=== PATIENT | male | born 1935 | race Hispanic/Latino ===

== ENCOUNTER 2016-12-25 08:45 | Inpatient (IN) | payer MEDICARE, OTHER ==
--- NOTE | 2016-12-25 09:22 | ED PDOC ---
Arrival/HPI - General Chief Complaint: Shortness Of Breath Time Seen by Provider: 12/25/16 08:46 Historian: Patient, Spouse - History of Present Illness Narrative History of Present Illness (Text): 12/25/16 08:57 Abhilash Lambert is an 81 year old male, former smoker whose past medical history includes Hypertension and Sleep Apnea, who presents to the emergency department after being on a [address] [facility] for evaluation of an infiltrate at the right lung. Patient about 3 days ago began to feel weak and experience cough, difficulty breathing/shortness of breath, and fevers. It was reported that patient had two episodes of diarrhea and vomiting, a 101 temperature, and one fall event. Patient had a reported white count of 11.7. Patient states he felt "flushed" and generally weak prior to the fall, but he is unsure what caused the fall. Patient denies LOC or head trauma. Patient received treatment on the cruise which includes Albuterol, Dexamethasone, Rocephin, Levaquin, and Azithromycin. PA Lateral Chest X-Ray taken on cruise showed infiltrate at the right lung. Patient otherwise denies any chest pain, urinary symptoms, back pain , neck pain, headache, dizziness, or any other complaints. PMD: In [place] Time/Duration: < week (3 days) Symptom Onset: Gradual Symptom Course: Unchanged Activities at Onset: Light Context: Other (Cruise) Past Medical History - Provider Review Nursing Documentation Reviewed: Yes - Travel History If Yes, travel location?: [facility] - Infectious Disease Hx of Infectious Diseases: None - Cardiac Hx Hypertension: Yes - Pulmonary Other/Comment: c-pap prn - Psychiatric Hx Substance Use: No - Anesthesia Hx Anesthesia: No Family/Social History - Physician Review Nursing Documentation Reviewed: Yes Family/Social History: No Known Family HX Smoking Status: Unknown If Ever Smoked Hx Alcohol Use: Yes Frequency of alcohol use: Socially Hx Substance Use: No Allergies/Home Meds Allergies/Adverse Reactions: Allergies No Known Allergies Allergy (Verified 12/25/16 08:53) Review of Systems - Physician Review All systems were reviewed & negative as marked: Yes - Review of Systems Constitutional: Fevers, Other (Generalized weakness) Eyes: Normal ENT: Normal Respiratory: SOB, Cough Cardiovascular: Normal Gastrointestinal: Diarrhea, Nausea, Vomiting. absent: Abdominal Pain Genitourinary Male: Normal. absent: Dysuria, Frequency, Hematuria, Urinary Output Changes Musculoskeletal: Normal. absent: Back Pain, Neck Pain Skin: Normal Neurological: Normal. absent: Headache Endocrine: Normal Hemo/Lymphatic: Normal Psychiatric: Normal Physical Exam Vital Signs Reviewed: Yes Vital Signs Temp Pulse Resp BP Pulse Ox 12/25/16 10:02 97.8 F 12/25/16 09:08 18 12/25/16 08:45 97.8 F 70 18 140/107 H 95 Blood Pressure: Hypertensive Pulse: Regular Respiratory Rate: Normal Appearance: Positive for: Well-Appearing, Non-Toxic, Comfortable Pain Distress: None Mental Status: Positive for: Alert and Oriented X 3 - Systems Exam Head: Present: Atraumatic, Normocephalic Pupils: Present: PERRL Extroacular Muscles: Present: EOMI Conjunctiva: Present: Normal Mouth: Present: Moist Mucous Membranes Neck: Present: Normal Range of Motion Respiratory/Chest: Present: Good Air Exchange, Rhonchi (Rhonchi on Right, Lower Side), Tachypneic (Mild). No: Respiratory Distress, Accessory Muscle Use, Decreased Breath Sounds Cardiovascular: Present: Regular Rate and Rhythm, Normal S1, S2. No: Murmurs Abdomen: Present: Normal Bowel Sounds. No: Tenderness, Distention, Peritoneal Signs Back: Present: Normal Inspection Upper Extremity: Present: Normal Inspection. No: Cyanosis, Edema Lower Extremity: Present: Normal Inspection. No: Edema Neurological: Present: GCS=15, CN II-XII Intact, Speech Normal Skin: Present: Warm, Dry, Normal Color. No: Rashes Psychiatric: Present: Alert, Oriented x 3, Normal Insight, Normal Concentration Medical Decision Making ED Course and Treatment: 12/25/16 08:57 Impression: 81 year old male presenting from cruise with R infiltrate, cough, fever, difficulty breathing, vomiting, diarrhea and one fall event. Differential Diagnosis include but are not limited to: PNA Plan: -- Chest X-ray -- VBG -- Blood Culture -- Labs -- Reassess and disposition Progress Notes: 12/25/16 09:18 EKG: Ordered, reviewed, and independently interpreted the EKG. Rate : 67 BPM Rhythm : NSR Interpretation : RBBB, PACs Comparison : No previous EKG for comparison. 12/25/16 09:37 Chest x-ray read by me shows right upper lobe PNA. 12/25/16 10:[address] López, who is covering for Dr. Martins, and will admit patient to the medical floor. Also discussed antibiotic dose the patient was, at 11pm patient was given Rocephin & Levaquin. As per request of Dr. López will only treat with Levaquin. 12/25/16 10:26 Dr. Martins came to see patient and agrees with plan. Patient is admitted to medicine for Pneumonia. - Lab Interpretations Lab Results: 12/25/16 09:27 12/25/16 09:27 Lab Results 12/25/16 09:27: Sodium 130 L, Chloride 98, Potassium 3.8, Carbon Dioxide 27, Anion Gap 9 L, BUN 24 H, Creatinine 1.0, Est GFR ( Amer) > 60, Est GFR ( Non-Af Amer) > 60, Random Glucose 218 H, Calcium 8.8, Phosphorus 2.4 L, Magnesium 2.2 12/25/16 09:27: pO2 93 H, VBG pH 7.43, VBG pCO2 41.0, VBG HCO3 27.2, VBG Total CO2 28.5 H, VBG O2 Sat (Calc) 99.2 H, VBG Base Excess 2.6 H, VBG Potassium 3.6, Sodium 131.0 L, Chloride 102.0, Glucose 221 H, Lactate 1.8, FiO2 21.0, Venous Blood Potassium 3.6 12/25/16 09:27: WBC 10.8, RBC 4.12, Hgb 13.1 L, Hct 35.7 L, MCV 86.7, MCH 31.8, MCHC 36.7, RDW 14.1, Plt Count 82 L, MPV 9.8, Gran % 89.2 H, Lymph % (Auto) 3.7 L, [place] % (Auto) 7.1 H, Eos % (Auto) 0.0 L, Baso % (Auto) 0.0, Gran # 9.62 H, Lymph # 0.4 L, [place] # 0.8 H, Eos # 0.0, Baso # 0.00 I have reviewed the lab results: Yes Interpretation: Abnormal lab values - RAD Interpretation Radiology Orders: 12/25/16 09:13 CXR [CHEST PORTABLE] [RAD] Stat Podiatrist Assistant: ED Physician - EKG Interpretation Interpreted by ED Physician: Yes Type: 12 lead EKG Comparison: No previous EKG avail. - Medication Orders Current Medication Orders: Discontinued Medications Levofloxacin/Dextrose (Levaquin 750mg) 750 mg IVPB STAT STA Stop: 12/25/16 10:05 - Scribe Statement The provider has reviewed the documentation as recorded by the Shannanibheike Arguelles Provider Attestation: All medical record entries made by the Shannanibheike were at my direction and personally dictated by me. I have reviewed the chart and agree that the record accurately reflects my personal performance of the history, physical exam, medical decision making, and the department course for this patient. I have also personally directed, reviewed, and agree with the discharge instructions and disposition. Disposition/Present on Arrival - Present on Arrival Any Indicators Present on Arrival: No History of DVT/PE: No History of Uncontrolled Diabetes: No Urinary Catheter: No History of Decub. Ulcer: No History Surgical Site Infection Following: None - Disposition Have Diagnosis and Disposition been Completed?: Yes Diagnosis: Pneumonia Disposition: HOSPITALIZED Disposition Time: 10:05 Patient Plan: Admission Condition: FAIR
[2016-12-25 09:29] LABS: ADD MANUAL DIFF? NO
[2016-12-25 09:34] LABS: VENOUS BLOOD GAS BASE EXCESS 2.6 mmol/L (0.0-2.0); VENOUS BLOOD PH 7.43 (7.32-7.43)
[2016-12-25 09:41] LABS: BLOOD UREA NITROGEN 24 mg/dL (7-21); CALCIUM 8.8 mg/dL (8.4-10.5); CARBON DIOXIDE 27 mmol/L (21-33); CHLORIDE 98 mmol/L (98-107); GFR AFRICAN-AMERICAN > 60; GLUCOSE,RANDOM 218 mg/dL (70-110); MAGNESIUM 2.2 mg/dL (1.7-2.2); PHOSPHOROUS 2.4 mg/dL (2.5-4.5); POTASSIUM 3.8 mmol/L (3.6-5.0); SODIUM 130 mmol/L (132-148)
--- NOTE | 2016-12-25 09:41 | RAD ---
HISTORY: cough r/o pna COMPARISON: No prior. FINDINGS: LUNGS: There is dense consolidation in the right upper lobe consistent with pneumonia. PLEURA: No significant pleural effusion identified, no pneumothorax apparent. CARDIOVASCULAR: Normal. OSSEOUS STRUCTURES: No significant abnormalities. VISUALIZED UPPER ABDOMEN: Normal. OTHER FINDINGS: None. IMPRESSION: Right upper lobe pneumonia
[2016-12-25 09:42] LABS: GRAN # 9.62 (1.4-6.5); GRAN % 89.2 % (50.0-68.0); HEMATOCRIT 35.7 % (42.0-52.0); LYMPH # 0.4 (1.2-3.4); LYMPH % 3.7 % (22.0-35.0); MEAN CELL VOLUME 86.7 fL (80.0-105.0); MEAN CORPUSCULAR HEMOGLOBIN 31.8 pg (25.0-35.0); MEAN CORPUSCULAR HGB CONC 36.7 g/dl (31.0-37.0); MEAN PLATELET VOLUME 9.8 fl (7.0-11.0); MONO # 0.8 (0.1-0.6); MONO % 7.1 % (1.0-6.0); PLATELET COUNT 82 10^3/uL (120.0-450.0); RED CELL DISTRIBUTION WIDTH 14.1 % (11.5-14.5); WHITE BLOOD COUNT 10.8 10^3/ul (4.5-11.0)
[2016-12-25 09:46] VITALS: BMI 26.9
[2016-12-25] MEDS ORDERED: levoFLOXacin 750 mg in D5W 150 ML BAG IVPB STA (10:04)
[2016-12-25] MEDS ORDERED: Azithromycin 500MG/NS 250ml 500 MG/250 ML BAG IVPB STA (10:47)
[2016-12-25] MEDS ORDERED: Levalbuterol 1.25 MG/3 ML Inhal Soln UD IH PRN (10:56)
[2016-12-25] MEDS ORDERED: Sodium Chloride 0.9% 1,000 ML IV SCH (11:00)
--- NOTE | 2016-12-25 14:02 | CT ---
PROCEDURE: CT Chest without contrast HISTORY: infiltrate COMPARISON: None. TECHNIQUE: Contiguous axial images were obtained through the chest without intravenous contrast enhancement. Sagittal and coronal reconstructions were performed. Radiation dose (DLP): 802 mGy-cm. This CT exam was performed using one or more of the following dose reduction techniques: Automated exposure control, adjustment of the mA and/or kV according to patient size, and/or use of iterative reconstruction technique. FINDINGS: LUNGS: There is dense consolidation in the right upper lobe consistent with pneumonia. There multiple air bronchograms. MEDIASTINUM: Unremarkable thoracic aorta. No aneurysm. Normal sized heart. Main pulmonary artery unremarkable. No vascular congestion. No lymphadenopathy. PLEURA: No pleural fluid. No pneumothorax. BONES: No fracture. No destructive lesion. UPPER ABDOMEN: Grossly unremarkable. OTHER FINDINGS: None. IMPRESSION: Dense consolidation in the right upper lobe with air bronchograms. The findings are consistent with pneumonia
[2016-12-25 14:09] LABS: TROPONIN I 0.02 ng/mL
[2016-12-25] MEDS: Piperacillin/Tazobact 3.375 gm 100 ML IVPB SCH (14:32)
--- NOTE | 2016-12-25 16:28 | HP ---
I saw the patient in the Emergency Room this morning. He was on a cruise ship. He was treated on a cruise ship with 2 days of IV antibiotics. He was on Levaquin, Rocephin and Zithromax. He is here in the ER with 101 temperature and a chest x-ray showing persistent right upper lobe pneumonia. He had a white count of 11.7 in the cruise ship. He is feeling weak, not feeling that great. He was given steroids, and he is still not feeling well, so he is here in the Emergency Room with positive right upper lobe pneumonia, a little bit weak. PAST MEDICAL HISTORY: He has a past medical history of hypertension. He would use CPAP at home p.r.n. FAMILY HISTORY: Hypertension in the family. SOCIAL HISTORY: He does drink alcohol socially. He smoked in the past, no substance abuse. ALLERGIES: No known drug allergies. REVIEW OF SYSTEMS: He has been having fevers. He is short of breath. He is coughing up sputum, no chest pain or palpitations. He does have diarrhea, nausea, vomiting, but no abdominal pain, no problems urinating. No back pain. Skin is intact. No dizziness, blurred vision. He is weak. PHYSICAL EXAMINATION: VITAL SIGNS: So far here in the hospital, he has a 97.8 temp, 70 pulse, 18 respiratory rate, 140/107 blood pressure. I will put him back on his blood pressure meds. HEENT: His head is atraumatic, normocephalic. Extraocular muscles are intact. Pupils equal, reactive to light and accommodation. Throat is moist. NECK: Supple. LUNGS: Decreased breath sounds, more congestion on the right upper lobe. HEART: Regular rate. Normal S1, S2. ABDOMEN: Soft, nontender, positive bowel sounds, no guarding, no rebound, no CVA tenderness. EXTREMITIES: No edema. NEUROLOGIC: GCS is 15. Cranial nerves II-XII grossly intact. Normal speech. SKIN: Warm and dry, no rashes. NEUROLOGIC: He is alert and oriented x 3. Thyroid midline. No palpable lymphadenopathy appreciated. He is an 81-year-old with a right upper lobe pneumonia, cough, fever, difficulty breathing. He has been on 3 antibiotics and still persistent with the pneumonia. Also, his blood pressure is high. I will get infectious disease to see if we need to change antibiotics pulmonary. Put him on oxygen. Blood pressure meds. I will check his labs tomorrow. He has also had low sodium. I have put him on 0.9, IV fluids and we will watch him very closely. The patient was on a cruise ship and now has persistent pneumonia. Gabe Martins DO cc: [id number] TT: 12/25/2016 16:28:14 mn MTDD
[2016-12-25] MEDS: Sodium Chloride 0.9% 1,000 ML IV SCH (17:04)
[2016-12-25 18:04] LABS: ARTERIAL BLOOD GAS HCO3 22.6 mmol/L (21-28)
--- NOTE | 2016-12-25 18:37 | CP.PCM.PN ---
Subjective - Date & Time of Evaluation Date of Evaluation: 12/25/16 Time of Evaluation: 17:30 - Subjective Subjective: Patient seen stat at the request of his R N who stated pt needs to be seen for his c/o feeling weak. He sat up at the edge of the bed and was about to start having his meal when he slumped back in the bed because he felt he "lost his balance" and couldn't sit. He denies any complaint of weakness in the arms or legs, nausea, vomiting, chest pain but admitted to having difficulty breathing. Denies chest pain on taking a deep breath. He was admitted this morning with a diagnosis of right sided pneumonia, is on antibiotics.He fell ill while on a cruise ship on December 23 while on a cruise ship,was treated for pneumonia. VS- BP 165/85 T 100.9 HR 92 RR 22 O2 Sat 97% on room air Patient was placed on oxygen O2 2L per minute. PMH: HTN, sleep apnea, ex-smoker (gave up smoking in 1974) Objective - Vital Signs/Intake and Output Vital Signs (last 24 hours): Temp Pulse Resp BP Pulse Ox 101.1 F H 88 20 159/86 H 95 12/25/16 17:07 12/25/16 16:00 12/25/16 16:00 12/25/16 16:00 12/25/16 16:00 Intake and Output: 12/25/16 12/25/16 06:59 18:59 Intake Total 240 Balance 240 - Medications Medications: Current Medications Acetaminophen (Tylenol 325mg Tab) 650 mg PO Q6H PRN PRN Reason: Temperature Last Admin: 12/25/16 17:07 Dose: 650 mg Aspirin (Ecotrin) 81 mg PO DAILY [facility] Atorvastatin Calcium (Lipitor) 20 mg PO DIN [facility] Last Admin: 12/25/16 17:07 Dose: 20 mg Hydrochlorothiazide (Microzide) 12.5 mg PO DAILY [facility] Levofloxacin/Dextrose (Levaquin 500mg) 500 mg in 100 mls @ 100 mls/hr IVPB DAILY [facility] Stop: 01/05/17 10:01 Piperacillin Sod/Tazobactam Sod (Zosyn 3.375 In Ns 100ml) 100 mls @ 200 mls/hr IVPB Q6 [facility] PRN Reason: Protocol Stop: 01/08/17 13:04 Last Admin: 12/25/16 14:32 Dose: 200 mls/hr Sodium Chloride (Sodium Chloride 0.9%) 1,000 mls @ 100 mls/hr IV .Q10H [facility] Last Admin: 12/25/16 17:04 Dose: 100 mls/hr Levalbuterol HCl (Xopenex) 1.25 mg IH [id number] PRN PRN Reason: Shortness of Breath Last Admin: 12/25/16 17:20 Dose: 1.25 mg Lisinopril (Zestril) 20 mg PO DAILY [facility] Metoprolol Succinate (Toprol Xl) 25 mg PO BRK [facility]ICA - Constitutional Appears: Non-toxic, Other (mildly tachypneic) - Head Exam Head Exam: ATRAUMATIC, NORMAL INSPECTION, NORMOCEPHALIC - ENT Exam ENT Exam: Mucous Membranes Moist - Neck Exam Neck Exam: Normal Inspection - Respiratory Exam Respiratory Exam: Rales (noted in right upper lung field), Rhonchi, Wheezes - Cardiovascular Exam Cardiovascular Exam: Irregular Rhythm (sinus arrhythmia with PACs noted on the EKG) - GI/Abdominal Exam GI & Abdominal Exam: Soft, Normal Bowel Sounds. absent: Tenderness - Extremities Exam Extremities Exam: Normal Inspection. absent: Calf Tenderness, Pedal Edema - Neurological Exam Neurological Exam: Alert, Awake, Oriented x3 Additional comments: no gross focal deficit - Psychiatric Exam Psychiatric exam: Normal Affect - Skin Skin Exam: Dry, Normal Color, Warm Assessment and Plan - Assessment and Plan (Free Text) Assessment: Pneumonia Plan: ABG shock panel Increase O2 to 3 liters per minute EKG that was ordered earlier, done now ABG shows PO2 of 89 on 2L O2 EKG shows sinus arrhythmia with RBBB (unchanged from before) Patient assured Call placed to Dr. López and Dr. Navarro (patient states he uses CPAP at home, need to discuss with Dr. Navarro)
[2016-12-25 19:24] LABS: URINE BILIRUBIN NEGATIVE (NEGATIVE); URINE BLOOD LARGE (NEGATIVE); URINE GLUCOSE (UA) NEGATIVE (NEGATIVE); URINE KETONE NEGATIVE (NEGATIVE); URINE LEUKOCYTE ESTERASE NEGATIVE Leu/uL (NEGATIVE); URINE PROTEIN 100 mg/dL (<30 mg/dL)
[2016-12-25 19:55] LABS: URINE COLOR YELLOW (YELLOW)
[2016-12-25 19:57] LABS: URINE APPEARANCE SL CLOUDY (CLEAR)
[2016-12-25 19:59] LABS: URINE BACTERIA MOD (NEG)
--- NOTE | 2016-12-25 20:41 | CON ---
DATE: 12/25/2016 The patient seen in room 562, bed 2. CHIEF COMPLAINT: Nausea, vomiting, diarrhea x 1 day. HISTORY OF PRESENT ILLNESS: This is an 81-year-old [place] with a history of hypertension an d has sleep apnea. He sleeps with CPAP at home because of his sleep apnea and he is from [place]. 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 Tw to 3 days into the cruise, he began doc umented fevers, nausea, vomiting and he was given antibiotics on the cruise. He had somewhat improve ment by the cruise and this morning the patient got off the ship in [place] and he came to the [facility] and infectious consultation requested for antibiotic choice. The patient was given ceftriax one and Levaquin and Zithromax on the cruise line and he was having fevers and occasional chills. He has had no chest pain. He denies any cough and no abdominal pain. He has mild shortness of breath and no dysuria or frequency, no bright red blood per rectum, his diarrhea has resolved and no headach es, no blurred vision and no new back pain. PAST MEDICAL HISTORY: Is significant for hypertension, sleep apnea on CPAP at home. PAST SURGICAL HISTORY: Is significant for left knee surgery and left hip surgery. ALLERGIES: The patient has no known allergies. MEDICATIONS AT HOME: Include Zocor for his hyperlipidemia, lisinopril and metoprolol, which is Topro l, in addition to aspirin. He has no exposure to any animals. He was in [place] years ago and was in [place] years ago. Recent ly was in [place]. He served as a vet in [place] and no exposure to tuberculosis that he recalls and kirsti burroughs has no known allergies. PHYSICAL EXAMINATION: GENERAL: He is in bed. He is from [place]. His present at the bedside, gave a detailed histo ry. VITAL SIGNS: Temperature of 99.4, blood pressure is 120/60, respiratory rate of 20, heart rate of 70 . HEENT: Unremarkable. NECK: Supple. LUNGS: Have decreased breath sounds. HEART: Normal S1, S2. ABDOMEN: Soft, nontender. No rebound, no guarding. NEUROLOGIC: The patient is awake and alert x 3. Motor function is 5/5. LABORATORY EXAMINATION: Reveals a white count of 10,000, hemoglobin of 13, platelets of 82 and 89% g ranulocytosis. Blood gases are noted with a pH of 7.4, pCO2 is 41, pO2 of 99%, and FIO2 of 21%. Ilia mistries reveal sodium is 130, potassium is 3.8, BUN of 24, creatinine of 1.0. Random glucose is 218 with a low phosphorus of 2.4. X-ray reveals dense consolidation in the right upper lobe consistent with a pneumonia. The Emergency Room chart is also reviewed. ASSESSMENT AND PLAN: This is an 81-year-old male who is a [place] , hypertension, sleep apnea on CPAP with left knee surgery, left hip surgery who presented with nausea, vomiting, diarrhea and w as given antibiotics on the ship on the way to [facility], now presenting with right upper lobe communit y-acquired pneumonia, failed as an outpatient. Must consider legionella although the patient's fever is a low grade fever. At this point, he states he had temperatures on the boat. Will treat the pat ient with Zosyn and Levaquin. I asked for a urine for legionella antigen pending pressley cultures, and a hemoglobin A1c. Will do a cardiac workup including EKG and cardiac isoenzymes and troponins and ilia ck on the LFTs and a urinalysis and urine culture and sputum culture and blood cultures and a CAT sca n of the chest and we will make further recommendations upon availability of initial results. John Doherty MD cc: [id number] TT: 12/25/2016 20:40:21 Confirmation # [id number] Dictation # [id number] dn
[2016-12-25 22:26] LABS: TROPONIN I 0.03 ng/mL
[2016-12-26] MEDS: Piperacillin/Tazobact 3.375 gm 100 ML IVPB SCH ×3 (00:11→14:04)
[2016-12-26] MEDS ORDERED: Albuterol-Ipratrop 3 mg / 0.5 (3 ml) UD IH PRN (06:38)
[2016-12-26 07:06] LABS: HEMATOCRIT 37.9 % (42.0-52.0); MEAN CELL VOLUME 88.3 fL (80.0-105.0); MEAN CORPUSCULAR HEMOGLOBIN 31.2 pg (25.0-35.0); MEAN CORPUSCULAR HGB CONC 35.4 g/dl (31.0-37.0); MEAN PLATELET VOLUME 9.9 fl (7.0-11.0); RED CELL DISTRIBUTION WIDTH 14.3 % (11.5-14.5); WHITE BLOOD COUNT 8.7 10^3/ul (4.5-11.0)
[2016-12-26 07:32] LABS: ALKALINE PHOSPHATASE 154 U/L (38-133); ALT/SGPT 263 U/L (7-56); AST/SGOT 403 U/L (15-59); BILIRUBIN,TOTAL 2.1 mg/dL (0.2-1.3); BLOOD UREA NITROGEN 24 mg/dL (7-21); CALCIUM 8.4 mg/dL (8.4-10.5); CARBON DIOXIDE 32 mmol/L (21-33); CHLORIDE 98 mmol/L (98-107); GFR AFRICAN-AMERICAN > 60; GLUCOSE,RANDOM 128 mg/dL (70-110); POTASSIUM 4.1 mmol/L (3.6-5.0); SODIUM 133 mmol/L (132-148); TOTAL PROTEIN 6.4 g/dL (5.8-8.3)
[2016-12-26] MEDS: Budesonide 0.5 mg/2 ml Inhal Susp UD IH SCH ×2 (07:52→19:10)
[2016-12-26] MEDS: Albuterol-Ipratrop 3 mg / 0.5 (3 ml) UD IH SCH ×3 (07:52→19:10)
[2016-12-26] MEDS: Metoprolol Succinate 25 mg XL Tab PO SCH (08:30)
--- NOTE | 2016-12-26 09:16 | CON ---
DATE: 12/26/2016 REASON FOR CONSULTATION: Pneumonia. REFERRING PHYSICIAN: Dr. Gabe Martins History is obtained via extensive discussion with the patient and . I have also reviewed the chart at length. The patient is an 81-year-old male, with past medical history significant for hypertension, and obstructive sleep apnea, who presents to [facility] -- transferred from the cruise ship -- with a diagnosis of pneumonia. Apparently, approximately 3 days into the cruise, the patient began to feel very weak and experienced fevers and chills. He also had some isolated episodes of nausea and diarrhea. The patient did have a chest x-ray on the ship -- which revealed a right upper lobe pneumonia. The patient was placed on antibiotic therapy(on the ship) -- and does feel better over the last day -- compared to how he felt on the ship. The patient is not short of breath at rest. He does have some mild dyspnea on exertion. He also states to a mild cough with minimal sputum production. There is no history of chest pain, coughing up of blood or chest pain -- made worse with deep respirations. As above, the patient did experience temperatures and chills--starting on the ship. No known infectious exposure. No history of night sweats, weight loss or appetite change prior to the above events. No history of leg or calf pains. No history of syncope or diaphoresis. The patient has traveled recently -- cruise to [facility]. No history of trauma. REVIEW OF SYSTEMS: No acute urinary symptoms. No new musculoskeletal complaints. Rest is negative. ALLERGIES: No known allergies. SOCIAL HISTORY: Positive for former tobacco usage. No alcohol. FAMILY HISTORY: No inheritable diseases. HOME MEDICATIONS: Include Toprol, Ecotrin, Zocor, Zestril. PHYSICAL EXAMINATION: GENERAL: The patient is not short of breath at rest. He is not using accessory muscles for breathing. VITAL SIGNS: Temperature is 100.0, pulse 68, respirations 18/20, blood pressure 159/86. HEENT: Normocephalic, atraumatic. No JVD. CARDIOVASCULAR: Positive S1, S2. No S3. LUNGS: Crackles -- right upper lobe area. Scattered bilateral rhonchi. No wheezing. EXTREMITIES: Mild edema. No cyanosis, no clubbing. Calves are nontender to palpation. GASTROINTESTINAL: Abdomen is soft, nontender, nondistended. Bowel sounds are positive. SKIN: No acute rash. NEUROLOGIC: Limited at the present time. PERTINENT LABORATORY DATA: CAT scan of the chest was done yesterday and reviewed. There is a dense consolidation in the right upper lobe -- with clear air bronchograms -- consistent with pneumonia. There is no lymphadenopathy. CBC: White count 10.8, hemoglobin 13.1, hematocrit 35.7, platelets of 82,000. Arterial blood gas was done on 2 liters nasal cannula. Results are: pH 7.50, pCO2 of 29, pO2 of 89. Complete metabolic profile: Sodium 130, BUN 24, glucose 218, phosphorus 2.4. Rest of the metabolic profile is within normal limits. Procalcitonin done is elevated at 3.45. IMPRESSION: 1. Right upper lobe pneumonia. 2. Sepsis syndrome. 3. Acute bronchitis. 4. Obstructive sleep apnea. 5. Mild anemia. PLAN: Again, I did discuss the case with the patient and at length. Apparently, a few days into their cruise, the patient started to experience weakness and fevers/chills. He also had a few limited episodes of nausea and diarrhea. Lastly, there is also the history of a mild cough with minimal sputum production. As above, apparently, the patient did have a chest x-ray on the cruise ship -- revealing the right upper lobe pneumonia. He was then placed on antibiotic therapy. He does feel better at the present time, and is clinically improved -- compared to a few days ago. I did review the CAT scan of the chest. A dense right upper lobe infiltrate -- with air bronchograms -- consistent with pneumonia is noted. There is no lymphadenopathy. Lawrence cultures have been ordered and will be analyzed when feasible. I would continue with the antibiotic coverage as per infectious disease. Input by Dr. Doherty is noted. On physical exam, there is mild bronchospasm noted. However, there is no significant alveolar-arterial gradient. I will start the patient on scheduled DuoNeb treatments and inhaled Pulmicort. He does continue to use his CPAP at night. Again, the patient does feel better over the past day -- compared to when he was on the ship. He is clinically improved. Additional pulmonary intervention will be based on the clinical status of the patient. I will discuss the above with Dr. Martins. Thank you very much for this pulmonary consultation. Marck Ayon MD cc: [phone] TT: 12/26/2016 09:15:38 Confirmation # [id number] Dictation # [id number] en MTDD
--- NOTE | 2016-12-26 09:22 | PN ---
DATE: 12/26/2016 I saw the patient this morning, resting comfortably in bed with his . They are from the cruise s hip. They have nowhere to go and they are kind of stranded here. He has a pneumonia in the right up per lung. He looks weaker today. The antibiotics have been changed by infectious disease, which is good because he was on 3 good antibiotics from the cruise ship. He is currently on DuoNeb, Levaquin, Lipitor, Microzide, Pulmicort, IV fluids, Toprol, Tylenol, Zestr il, and Zosyn now as the IV antibiotic. He takes metoprolol, Ecotrin, Zocor and Zestril at home. PHYSICAL EXAMINATION: VITAL SIGNS: He was as high as 101.1 temp. It is down to 98.2. A good sign. Pulse 68, 144/77 bloo d pressure, 20 respiratory rate, 98% O2 sat on room air. HEAD: Atraumatic, normocephalic. THROAT: Moist. NECK: Supple. HEART: Regular rate. LUNGS: Decreased breath sounds. A little wheeze. It changes with cough. ABDOMEN: Soft. EXTREMITIES: No edema, but he is weak. He has an 8.7 white count, 13.4 hemoglobin, 37.9 hematocrit with an 87 platelets. They are a little bit low. It could be from all the antibiotics. A 130 sodium yesterday. I am waiting for today's so dium to come back. His BUN was 24, creatinine was 1. Waiting for his labs to come back today also. His troponins are 0.02, 0.03, indeterminate. Procalcitonin was quite high at 3.45. He also had a u rinary tract infection on top of the pneumonia. Legionella was negative. We will continue with aggressive treatment and care, as per infectious disease and pulmonary. He did have a CAT scan of the chest, dense consolidation in the right upper lobe with air bronchograms, con sistent with pneumonia. The infectious disease doctor I called in because he was on good medication and wanted to get his take on a different antibiotic because he was on a cruise ship and he failed ou tpatient treatment with 3 good medications. We will continue with aggressive treatment and care. Al so, I am happy his temperature dropped to normal, which is important. Watch his oxygen saturation. It did drop to 89% at one time. Answered many questions from the family. Continue IV antibiotics an d pulmonary toilet, get him out of bed to chair all day for meals. He has got a persistent right upp er lobe pneumonia and urinary tract infection. Gabe Martins DO cc: [id number] TT: 12/26/2016 09:21:22 Confirmation # [id number] Dictation # [id number] en
[2016-12-26] MEDS ORDERED: cefTRIAXone 1 gm 1 GM/100 ML BAG IVPB SCH (10:00)
[2016-12-26] MEDS ORDERED: levoFLOXacin 500 mg in D5W 500 MG/100 ML BAG IVPB SCH (10:00)
--- NOTE | 2016-12-26 13:21 | PN ---
DATE: 12/26/2016 The patient is in bed in no acute distress. The patient is doing much better this morning. His said he was complaining of being weak throughout the night. He did have a fever of 101 yesterday an d 2 episodes of fevers. PHYSICAL EXAMINATION: VITAL SIGNS: His temperature 98, T-max is 101, blood pressure is 140/70, respiratory rate of 20, hea rt rate of 68. HEENT: Unremarkable. NECK: Supple. LUNGS: Have decreased breath sounds. HEART: Normal S1, S2. ABDOMEN: Soft and nontender. LABORATORY DATA: Reveals the patient's blood cultures are negative and white count is 8.7, hemoglobi n of 13, platelets of 87. BUN of 24, creatinine of 1.0. LFTs are elevated. Urinalysis is noted. U rine for legionella antigen is negative. Dr. Gabe Martins's note is reviewed. John Doherty MD cc: [id number] TT: 12/26/2016 13:21:04 Confirmation # [id number] Dictation # [id number] cn
--- NOTE | 2016-12-26 13:32 | PN ---
DATE: 12/26/2016 The patient was seen earlier in 562, bed 2. The patient did have a fever as stated. The patient is doing better. PHYSICAL EXAMINATION: VITAL SIGNS: Temperature is 99, T-max is 101.1, blood pressure is 120/70, respiratory rate of 20. HEENT: Unremarkable. NECK: Supple. LUNGS: Have decreased breath sounds. HEART: Normal S1, S2. ABDOMEN: Soft, nontender. LABORATORY DATA: Reveals the patient had a CT scan of the chest and dense consolidation of the right upper lobe consistent with a pneumonia and multiple air bronchograms. Dr. Ayon's consultation is reviewed and appreciated. Dr. Gabe Martins's progress note is reviewed. Blood cultures are report ed to be negative. The patient's urine for legionella antigen is negative. Urinalysis is negative. The chemistries reveal the procalcitonin is elevated at 3.45. ASSESSMENT AND PLAN: This is an 81-year-old male with a history of sleep apnea with CPAP at home, hy pertension who was admitted from a cruise ship. The patient is a [place] and has had a histo ry of left knee surgery, left hip surgery. The patient now admitted from a cruise ship with a persis tent fever and was given antibiotics on the cruise ship without improvement, now with a right upper l obe community-acquired pneumonia and currently on Zosyn and Levaquin. The patient's platelets have r emained low, would recommend a heme consultation and an abdominal ultrasound and a GI consultation. All the patient's 's questions have been answered and case discussed with Dr. Gabe Martins. Fol low the LFTs and hemoglobin A1c is 6. The patient's sodium is up to 133 today. John Doherty MD cc: [id number] TT: 12/26/2016 13:31:21 Confirmation # [id number] Dictation # [id number] colin
[2016-12-26] MEDS: Sodium Chloride 0.9% 1,000 ML IV SCH (14:05)
[2016-12-27] MEDS: Piperacillin/Tazobact 3.375 gm 100 ML IVPB SCH ×5 (00:31→23:02)
[2016-12-27] MEDS: Albuterol-Ipratrop 3 mg / 0.5 (3 ml) UD IH SCH ×4 (04:53→19:32)
[2016-12-27 06:51] LABS: HEMATOCRIT 36.3 % (42.0-52.0); MEAN CELL VOLUME 87.7 fL (80.0-105.0); MEAN CORPUSCULAR HEMOGLOBIN 31.4 pg (25.0-35.0); MEAN CORPUSCULAR HGB CONC 35.8 g/dl (31.0-37.0); MEAN PLATELET VOLUME 9.6 fl (7.0-11.0); WHITE BLOOD COUNT 6.5 10^3/ul (4.5-11.0)
[2016-12-27 07:07] LABS: ALKALINE PHOSPHATASE 282 U/L (38-133); ALT/SGPT 412 U/L (7-56); AST/SGOT 478 U/L (15-59); BILIRUBIN,TOTAL 2.3 mg/dL (0.2-1.3); BLOOD UREA NITROGEN 22 mg/dL (7-21); CALCIUM 8.4 mg/dL (8.4-10.5); CARBON DIOXIDE 29 mmol/L (21-33); CHLORIDE 99 mmol/L (98-107); GFR AFRICAN-AMERICAN > 60; GLUCOSE,RANDOM 123 mg/dL (70-110); POTASSIUM 3.8 mmol/L (3.6-5.0); SODIUM 132 mmol/L (132-148)
--- NOTE | 2016-12-27 07:35 | PN ---
DATE: 12/27/2016 SUBJECTIVE: The patient appears comfortable this morning. He is not short of breath at rest. PHYSICAL EXAMINATION: VITAL SIGNS: Last temperature recorded -- 99.8, pulse 66, respirations 18, blood pressure 130/75. Oxygen saturation on nasal cannula ranges between 90%-98 %. HEENT: Normocephalic, atraumatic. No JVD. CARDIOVASCULAR: Positive S1, S2. No S3. LUNGS: Crackles -- right upper lobe area. Less rhonchi. No wheezing. EXTREMITIES: Mild edema. No cyanosis, no clubbing. Calves are nontender to palpation. GASTROINTESTINAL: Abdomen is soft, nontender, nondistended. Bowel sounds are positive. SKIN: No acute rash. NEUROLOGIC: Limited at the present time. IMPRESSION: 1. Right upper lobe pneumonia. 2. Sepsis syndrome. 3. Acute bronchitis. 4. Obstructive sleep apnea. 5. Mild anemia. PLAN: The patient appears more comfortable this morning. He is not short of breath at rest. His cough is less. He does state to feeling better overall. I did discuss the case with the night nurse at length. The night nurse stated that the patient did have a good night -- and that the temperatures are decreasing. I would continue with the current antibiotic therapy -- as per infectious disease. Input by Dr. Doherty is noted. On physical exam, there is certainly less bronchospasm noted. I will continue with the current nebulizer treatments and inhaled steroids for now. I did have a long talk with the patient and this morning. The , in particular, seems very frustrated and angry that I cannot give her a definite discharge date for her . Throughout our conversation, the patient's seemed to become increasingly frustrated with me. I then offered them the choice of bringing another manager of organizational development on the case -- if they would feel more comfortable with that. They both said they would. I did leave the room wishing them both the very best of luck. I will discuss this issue with Dr. Martins in the next few moments, and turn over the case to the next manager of organizational development (when I know who it will be). Marck Ayon MD cc: [phone] TT: 12/27/2016 07:35:05 Confirmation # [id number] Dictation # [id number] en ORTIZ
--- NOTE | 2016-12-27 08:07 | US ---
HISTORY: elevated LFTs COMPARISON: None. TECHNIQUE: Sonographic evaluation of the abdomen. FINDINGS: LIVER: Measures 19.3 cm. Diffusely increased echogenicity of the liver parenchyma. No mass. No intrahepatic bile duct dilatation. GALLBLADDER: Unremarkable. No gallstones. COMMON BILE DUCT: Measures 5 mm. No stones. No dilatation. PANCREAS: Unremarkable as visualized. No mass. No ductal dilatation. RIGHT KIDNEY: Measures 12.2cm. Normal echogenicity. No calculus, mass, or hydronephrosis. LEFT KIDNEY: Measures 12.4cm. Normal echogenicity. No calculus, mass, or hydronephrosis. SPLEEN: Normal in size and contour. No mass. AORTA: No aneurysmal dilatation. IVC: Unremarkable. OTHER FINDINGS: Right pleural effusion noted. IMPRESSION: Mild hepatomegaly. Diffuse fatty infiltration of the liver. Right pleural effusion noted.
[2016-12-27 09:28] LABS: PLATELET COUNT 100 10^3/uL (120.0-450.0)
[2016-12-27] MEDS: Metoprolol Succinate 25 mg XL Tab PO SCH (09:56)
[2016-12-27] MEDS: Budesonide 0.5 mg/2 ml Inhal Susp UD IH SCH ×2 (09:58→19:32)
--- NOTE | 2016-12-27 10:00 | PN ---
DATE: 12/27/2016 I saw him this morning sitting out of bed to chair. He was able to walk to the bathroom with minimal assist and came back. He is eating well. He had a big bowel movement he tells me. He is getting h is strength back. He is breathing better. No coughing. PHYSICAL EXAMINATION: VITAL SIGNS: He has 98.9 temp, much better than 101. He has a 65 pulse, 160/80 blood pressure, 22 r espiratory rate, 95% O2 sat on room air. HEENT: Head is atraumatic, normocephalic. His throat is moist. 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 NECK: Supple. HEART: Regular rate. LUNGS: Decreased breath sounds, but clear to auscultation. No wheezes, no rhonchi, rales. I do not hear anything bad in lungs. I am ordering a chest x-ray today to see if the pneumonia is improving. ABDOMEN: Soft. EXTREMITIES: No edema. MEDICATIONS: He is currently on albuterol, DuoNeb, Ecotrin, Levaquin, Microzide, Pulmicort, IV fluid s, Toprol, Tylenol, which I am going to hold Zestril and Zosyn. They had a problem with Dr. Ayon, the sales clerk supervisor. They asked for a second opinion. I discusse d this with Dr. Ayon. We will get Dr. Gardner ____ stopping the Tylenol. He had blood tests. LABORATORY DATA: The white count is 6.5 better, 13 hemoglobin, 36.3 hematocrit with 100 platelets, w hich is also better. Manual count is 125 on the platelets. He has a 132 sodium, potassium 3.8, BUN 22 better, creatinine 0.9 better. GFR is greater than 60. Sugar is 123. Calcium is 8.4. Total bianka i is 2.3, which is high. AST is 478, high. ALT is 412, high. Alkaline phosphatase is 282, high. L actate dehydrogenase is 1165. Troponin is 0.03, total protein 6. He did have a fall. He was taking a lot of Tylenol that could be the reason for the elevated liver e nzymes. All his hepatitis screens are negative. He had an ultrasound of the abdomen to make sure the liver is okay, and that showed mild hepatomegaly , diffuse fatty infiltration of the liver, and right pleural effusion noted. He will be followed by GI and pulmonary, Dr. Gardner now, for a second opinion. He will have labs alirio orrow. I ordered a chest x-ray for today. I am hoping if the chest x-ray is okay that he can go [place] e tomorrow. Discussed it with family. The patient has bilateral pneumonia, elevated liver enzymes, and now with a blister on his left lip. Gabe Martins DO cc: [id number] TT: 12/27/2016 09:59:40 Confirmation # [id number] Dictation # [id number] jn
[2016-12-27] MEDS: levoFLOXacin 500 MG TAB PO SCH (10:03)
--- NOTE | 2016-12-27 10:45 | CP.PCM.CON ---
<Kendell Ramirez - Last Filed: 12/27/16 13:26> History of Present Illness - History of Present Illness History of Present Illness: PGY4 GI Fellow Consult Note Patient is an 81yo male with PMHx significant for HTN, HLD, EITAN and B/L hearing impairment who presented to the ED with generalized malaise, fever and cough. The patient was on a cruise to [facility] when he began to feel ill with generalized malaise, weakness and fevers. He was initially evaluated by the staff physician and was given Tylenol and NyQuil. Symptoms persisted and worsened with high fever and worsening malaise/weakness. The patient became so weak that he fell, hitting his head while using the restroom on the cruise ship and had to be helped up by multiple people. He was again evaluated by the staff physician who performed and CXR and diagnosed the patient with pneumonia and started him on antibiotic therapy. It was recommended that he be evaluated in the ER as soon as the ship docked at port. Our service is consulted as he has been found to have abnormal liver function tests. Currently, the patient states he is feeling better overall. He currently denies any recurrent fever, chills and denies any chest/abdominal pain, nausea, weight loss, constipation or diarrhea. He denies any history of liver disease or alcohol abuse. PMHx: See HPI PSHx: Left hip/knee replacement, L inguinal hernia repair FHx: Brother - from [place]; Father - Cirrhosis (EtOH), psoriasis Social: Quit smoking in the 70s, Denies EtOH or illicit drug use Endo: Colonoscopy in 2009, unremarkable and was told he did not require repeat examination due to his age Review of Systems - Constitutional Constitutional: absent: Anorexia, Chills, Fatigue, Fever - EENT Eyes: absent: Change in Vision Nose/Mouth/Throat: absent: Sore Throat - Cardiovascular Cardiovascular: Dyspnea. absent: Chest Pain, Edema - Respiratory Respiratory: Cough, Excessive Mucous Production. absent: Dyspnea - Gastrointestinal Gastrointestinal: absent: Abdominal Pain, Bloating, Constipation, Cramping, Diarrhea, Dyspepsia, Dysphagia, Hematemesis, Hematochezia, Melena, Nausea, Vomiting - Genitourinary Genitourinary: absent: Dysuria, Urinary Frequency, Urinary Urgency - Musculoskeletal Musculoskeletal: absent: Back Pain, Neck Pain - Integumentary Integumentary: absent: New Lesions, Rash - Neurological Neurological: absent: Dizziness, Numbness, Focal Weakness - Psychiatric Psychiatric: absent: Anxiety, Depression - Endocrine Endocrine: absent: Polydipsia, Polyphagia, Polyuria - Hematologic/Lymphatic Hematologic: absent: Easy Bleeding, Easy Bruising, Lymphadenopathy Past Patient History - Infectious Disease Hx of Infectious Diseases: None - Past Social History Smoking Status: Former Smoker - CARDIAC Hx Hypertension: Yes - PULMONARY Other/Comment: c-pap prn - MUSCULOSKELETAL/RHEUMATOLOGICAL Hx Falls: Yes - PSYCHIATRIC Hx Substance Use: No - ANESTHESIA Hx Anesthesia: No Meds Allergies/Adverse Reactions: Allergies Allergy/AdvReac Type Severity Reaction Status Date / Time No Known Allergies Allergy Verified 12/25/16 08:53 - Medications Medications: Current Medications Albuterol/Ipratropium (Duoneb 3 Mg/0.5 Mg (3 Ml) Ud) 3 ml IH [id number] [facility] Last Admin: 12/27/16 09:57 Dose: 3 ml Albuterol/Ipratropium (Duoneb 3 Mg/0.5 Mg (3 Ml) Ud) 3 ml IH Q2H PRN PRN Reason: Shortness of Breath Aspirin (Ecotrin) 81 mg PO DAILY [facility] Last Admin: 12/27/16 10:03 Dose: 81 mg Budesonide (Pulmicort Respules) 0.5 mg IH [id number] [facility] Last Admin: 12/27/16 09:58 Dose: 0.5 mg Hydrochlorothiazide (Microzide) 12.5 mg PO DAILY [facility] Last Admin: 12/27/16 10:02 Dose: 12.5 mg Piperacillin Sod/Tazobactam Sod (Zosyn 3.375 In Ns 100ml) 100 mls @ 200 mls/hr IVPB Q6 [facility] PRN Reason: Protocol Stop: 01/08/17 13:04 Last Admin: 12/27/16 05:21 Dose: 200 mls/hr Sodium Chloride (Sodium Chloride 0.9%) 1,000 mls @ 100 mls/hr IV .Q10H [facility] Last Admin: 12/26/16 14:05 Dose: 100 mls/hr Levofloxacin (Levaquin) 500 mg PO DAILY [facility] Stop: 01/01/17 10:01 Last Admin: 12/27/16 10:03 Dose: 500 mg Lisinopril (Zestril) 20 mg PO DAILY [facility] Last Admin: 12/27/16 10:02 Dose: 20 mg Metoprolol Succinate (Toprol Xl) 25 mg PO BRK [facility] Last Admin: 12/27/16 09:56 Dose: 25 mg Valacyclovir HCl (Valtrex) 500 mg PO BID [facility] PRN Reason: Protocol Last Admin: 12/27/16 10:02 Dose: 500 mg Physical Exam - Constitutional Appears: Non-toxic, No Acute Distress - Eye Exam Eye Exam: EOMI, PERRL - ENT Exam ENT Exam: Mucous Membranes Moist - Respiratory Exam Respiratory Exam: Rales, Rhonchi, Wheezes. absent: Clear to Auscultation Bilateral Additional comments: R>L - Cardiovascular Exam Cardiovascular Exam: RRR, +S1, +S2 - GI/Abdominal Exam GI & Abdominal Exam: Normal Bowel Sounds, Soft. absent: Distended, Firm, Guarding, Organomegaly, Rigid, Tenderness - Extremities Exam Extremities exam: Positive for: normal inspection. Negative for: pedal edema - Neurological Exam Neurological exam: Alert, Oriented x3 - Psychiatric Exam Psychiatric exam: Normal Affect, Normal Mood - Skin Skin Exam: Dry, Warm Additional comments: scab formed on left face following fall on cruise ship Results - Vital Signs Recent Vital Signs: Last Vital Signs Temp 98.9 F 12/27/16 07:22 Pulse 80 12/27/16 10:02 Resp 22 12/27/16 07:22 BP 160/85 H 12/27/16 10:02 Pulse Ox 95 12/27/16 07:22 - Labs Result Diagrams: 12/27/16 06:30 12/27/16 06:30 Labs: Laboratory Results - last 24 hr 12/26/16 12/27/16 12/27/16 07:30 06:30 06:30 WBC 6.5 D RBC 4.14 Hgb 13.0 L Hct 36.3 L MCV 87.7 MCH 31.4 MCHC 35.8 RDW 14.0 Plt Count 100 L Manual Plt Count MPV 9.6 Fibrinogen Sodium 132 Potassium 3.8 Chloride 99 Carbon Dioxide 29 Anion Gap 8 L BUN 22 H Creatinine 0.9 Est GFR ( Amer) > 60 Est GFR (Non-Af Amer) > 60 Random Glucose 123 H Calcium 8.4 Total Bilirubin 2.3 H AST 478 H ALT 412 H Alkaline Phosphatase 282 H Total Protein 6.0 Albumin 3.0 Globulin 3.1 Albumin/Globulin Ratio 1.0 L Hepatitis A IgM Ab Negative Hep Bs Antigen Negative Hep B Core IgM Ab Negative Hepatitis C Antibody Negative 12/27/16 12/27/16 06:30 08:00 WBC RBC Hgb Hct MCV MCH MCHC RDW Plt Count 100 L Manual Plt Count 125 MPV Fibrinogen 725.9 H* Sodium Potassium Chloride Carbon Dioxide Anion Gap BUN Creatinine Est GFR ( Amer) Est GFR (Non-Af Amer) Random Glucose Calcium Total Bilirubin AST ALT Alkaline Phosphatase Total Protein Albumin Globulin Albumin/Globulin Ratio Hepatitis A IgM Ab Hep Bs Antigen Hep B Core IgM Ab Hepatitis C Antibody Assessment & Plan - Assessment and Plan (Free Text) Assessment: Patient is an 81yo male with PMHx significant for HTN, HLD, EITAN and B/L hearing impairment who presented to the ED with generalized malaise, fever and cough. -RUL community acquired pneumonia -Elevated LFTs -Elevated CK in setting of recent fall -Hepatic steatosis Plan: -Abdominal U/S reviewed; will perform MRCP given abnormal imaging and mixed LFT pattern (cholestatic/hepatocellular) -Elevated LFTs may be due to a combination of factors including therapeutic misadventure (heavy Tylenol/NyQuil use), elevations from skeletal muscle due to recent fall (elevated CK with large blood/minimal RBC noted on U/A suggestive of myoglobinuria), underlying hepatic steatosis -Agree with holding statin therapy for now -Check PT/INR, Acetaminophen level, MARILEE, AMA, SMA, LKM Ab -Viral hepatitis serologies negative -Continue to monitor CMP, INR daily -Will require outpatient follow up with repeat CMP after D/C; if hepatitis does not resolve, may warrant liver biopsy in the future - Date & Time Date: 12/27/16 Time: 08:30 <Bean Rowe - Last Filed: 12/27/16 16:08> Meds - Medications Medications: Current Medications Albuterol/Ipratropium (Duoneb 3 Mg/0.5 Mg (3 Ml) Ud) 3 ml IH [id number] [facility] Last Admin: 12/27/16 09:57 Dose: 3 ml Albuterol/Ipratropium (Duoneb 3 Mg/0.5 Mg (3 Ml) Ud) 3 ml IH Q2H PRN PRN Reason: Shortness of Breath Aspirin (Ecotrin) 81 mg PO DAILY [facility] Last Admin: 12/27/16 10:03 Dose: 81 mg Budesonide (Pulmicort Respules) 0.5 mg IH [id number] [facility] Last Admin: 12/27/16 09:58 Dose: 0.5 mg Hydrochlorothiazide (Microzide) 12.5 mg PO DAILY [facility] Last Admin: 12/27/16 10:02 Dose: 12.5 mg Piperacillin Sod/Tazobactam Sod (Zosyn 3.375 In Ns 100ml) 100 mls @ 200 mls/hr IVPB Q6 VER[facility]NICA PRN Reason: Protocol Stop: 01/08/17 13:04 Last Admin: 12/27/16 12:03 Dose: 200 mls/hr Sodium Chloride (Sodium Chloride 0.9%) 1,000 mls @ 100 mls/hr IV .Q10H [facility] Last Admin: 12/26/16 14:05 Dose: 100 mls/hr Linezolid (Zyvox 600mg/300ml D5w) 600 mg in 300 mls @ 200 mls/hr IVPB Q12 VERÓNICA PRN Reason: Protocol Stop: 01/03/17 13:31 Last Admin: 12/27/16 14:49 Dose: 200 mls/hr Levofloxacin (Levaquin) 500 mg PO DAILY [facility] Stop: 01/01/17 10:01 Last Admin: 12/27/16 10:03 Dose: 500 mg Lisinopril (Zestril) 20 mg PO DAILY [facility] Last Admin: 12/27/16 10:02 Dose: 20 mg Metoprolol Succinate (Toprol Xl) 25 mg PO BRK [facility] Last Admin: 12/27/16 09:56 Dose: 25 mg Valacyclovir HCl (Valtrex) 500 mg PO BID [facility] PRN Reason: Protocol Last Admin: 12/27/16 10:02 Dose: 500 mg Results - Vital Signs Recent Vital Signs: Last Vital Signs Temp 98.9 F 12/27/16 07:22 Pulse 80 12/27/16 10:02 Resp 22 12/27/16 07:22 BP 160/85 H 12/27/16 10:02 Pulse Ox 95 12/27/16 07:22 - Labs Result Diagrams: 12/27/16 06:30 12/27/16 06:30 Labs: Laboratory Results - last 24 hr 12/26/16 12/27/16 12/27/16 07:30 06:30 06:30 WBC 6.5 D RBC 4.14 Hgb 13.0 L Hct 36.3 L MCV 87.7 MCH 31.4 MCHC 35.8 RDW 14.0 Plt Count 100 L Manual Plt Count MPV 9.6 PT INR Fibrinogen Sodium 132 Potassium 3.8 Chloride 99 Carbon Dioxide 29 Anion Gap 8 L BUN 22 H Creatinine 0.9 Est GFR ( Amer) > 60 Est GFR (Non-Af Amer) > 60 Random Glucose 123 H Calcium 8.4 Total Bilirubin 2.3 H AST 478 H ALT 412 H Alkaline Phosphatase 282 H Total Protein 6.0 Albumin 3.0 Globulin 3.1 Albumin/Globulin Ratio 1.0 L Vitamin B12 Acetaminophen Hepatitis A IgM Ab Negative Hep Bs Antigen Negative Hep B Core IgM Ab Negative Hepatitis C Antibody Negative 12/27/16 12/27/16 12/27/16 06:30 06:30 08:00 WBC RBC Hgb Hct MCV MCH MCHC RDW Plt Count 100 L Manual Plt Count 125 MPV PT INR Fibrinogen 725.9 H* Sodium Potassium Chloride Carbon Dioxide Anion Gap BUN Creatinine Est GFR ( Amer) Est GFR (Non-Af Amer) Random Glucose Calcium Total Bilirubin AST ALT Alkaline Phosphatase Total Protein Albumin Globulin Albumin/Globulin Ratio Vitamin B12 639 Acetaminophen Hepatitis A IgM Ab Hep Bs Antigen Hep B Core IgM Ab Hepatitis C Antibody 12/27/16 12/27/16 10:58 Unknown WBC RBC Hgb Hct MCV MCH MCHC RDW Plt Count Manual Plt Count MPV PT 11.6 INR 1.07 Fibrinogen Sodium Potassium Chloride Carbon Dioxide Anion Gap BUN Creatinine Est GFR ( Amer) Est GFR (Non-Af Amer) Random Glucose Calcium Total Bilirubin AST ALT Alkaline Phosphatase Total Protein Albumin Globulin Albumin/Globulin Ratio Vitamin B12 Acetaminophen < 10.0 L Hepatitis A IgM Ab Hep Bs Antigen Hep B Core IgM Ab Hepatitis C Antibody Attending/Attestation - Attestation I have personally seen and examined this patient.: Yes I have fully participated in the care of the patient.: Yes I have reviewed all pertinent clinical information: Yes Notes (Text): 12/27/16 16:04 81 year old male admitted with pneumonia, also with elevated LFTs. 1. Elevated LFTs Plan: -US abdomen reviewed, enlarged liver, fatty infiltration -ddx includes NAFLD, alcoholic liver disease (no current use, but [place] and may have drank in the past) -viral serologies negative -tylenol level is negative -autoimmune serologies sent -recommend MRCP to r/o choledocholithiasis, though US negative for stones or CBD dilation -ok to discharge tomorrow with follow up in [place]
[2016-12-27 11:20] LABS: INR 1.07 (0.93-1.08)
--- NOTE | 2016-12-27 13:21 | RAD ---
HISTORY: pneumonia COMPARISON: 12/25/2016 TECHNIQUE: Chest PA and lateral FINDINGS: LUNGS: Dense consolidation in right upper lobe is again evident. Please follow up to clearing to exclude underlying neoplasm. There is no significant interval change noted. There is no other consolidation seen elsewhere. There are probable small calcified granulomas in the mid to lower right lung. PLEURA: Minimal blunting of left costophrenic angle is noted which may reflect small pleural effusion or chronic pleural thickening. The right costophrenic angle is clear. There is no pneumothorax. CARDIOVASCULAR: Normal. OSSEOUS STRUCTURES: No significant abnormalities. VISUALIZED UPPER ABDOMEN: Normal. OTHER FINDINGS: None. IMPRESSION: Dense consolidation in right upper lobe. Followup to clearing to exclude underlying neoplasm. Calcified granulomas mid to lower right lung.
--- NOTE | 2016-12-27 13:26 | CP.PCM.PN ---
Subjective - Date & Time of Evaluation Date of Evaluation: 12/27/16 Time of Evaluation: 11:25 - Subjective Subjective: Patient still had fever last night; not in distress. Objective - Vital Signs/Intake and Output Vital Signs (last 24 hours): Temp Pulse Resp BP Pulse Ox 98.9 F 80 22 160/85 H 95 12/27/16 07:22 12/27/16 10:02 12/27/16 07:22 12/27/16 10:02 12/27/16 07:22 Intake and Output: 12/27/16 12/27/16 06:59 18:59 Intake Total 600 Balance 600 - Medications Medications: Current Medications Albuterol/Ipratropium (Duoneb 3 Mg/0.5 Mg (3 Ml) Ud) 3 ml IH [id number] [facility] Last Admin: 12/27/16 09:57 Dose: 3 ml Albuterol/Ipratropium (Duoneb 3 Mg/0.5 Mg (3 Ml) Ud) 3 ml IH Q2H PRN PRN Reason: Shortness of Breath Aspirin (Ecotrin) 81 mg PO DAILY [facility] Last Admin: 12/27/16 10:03 Dose: 81 mg Budesonide (Pulmicort Respules) 0.5 mg IH [id number] [facility] Last Admin: 12/27/16 09:58 Dose: 0.5 mg Hydrochlorothiazide (Microzide) 12.5 mg PO DAILY [facility] Last Admin: 12/27/16 10:02 Dose: 12.5 mg Piperacillin Sod/Tazobactam Sod (Zosyn 3.375 In Ns 100ml) 100 mls @ 200 mls/hr IVPB Q6 [facility] PRN Reason: Protocol Stop: 01/08/17 13:04 Last Admin: 12/27/16 12:03 Dose: 200 mls/hr Sodium Chloride (Sodium Chloride 0.9%) 1,000 mls @ 100 mls/hr IV .Q10H [facility] Last Admin: 12/26/16 14:05 Dose: 100 mls/hr Levofloxacin (Levaquin) 500 mg PO DAILY [facility] Stop: 01/01/17 10:01 Last Admin: 12/27/16 10:03 Dose: 500 mg Lisinopril (Zestril) 20 mg PO DAILY [facility] Last Admin: 12/27/16 10:02 Dose: 20 mg Metoprolol Succinate (Toprol Xl) 25 mg PO BRK [facility] Last Admin: 12/27/16 09:56 Dose: 25 mg Valacyclovir HCl (Valtrex) 500 mg PO BID [facility] PRN Reason: Protocol Last Admin: 12/27/16 10:02 Dose: 500 mg - Labs Labs: 12/27/16 06:30 12/27/16 06:30 PT 11.6 Seconds (9.9-11.8) 12/27/16 10:58 INR 1.07 (0.93-1.08) 12/27/16 10:58 - Constitutional Appears: Non-toxic, No Acute Distress - Head Exam Head Exam: NORMAL INSPECTION - Respiratory Exam Respiratory Exam: Decreased Breath Sounds - Cardiovascular Exam Cardiovascular Exam: +S1, +S2 - GI/Abdominal Exam GI & Abdominal Exam: Soft. absent: Tenderness Assessment and Plan - Assessment and Plan (Free Text) Plan: Assessment Sepsis due to right upper lobe community-acquired pneumonia obstructive sleep apnea on CPAP at home HTN S/P left hip and knee surgery Plan Continue Zosyn and Levaquin; will add Zyvox and await sputum cx, MRSA screen results; if the patient continues to have fever, may need to look for other causes of pneumonia (other than bacteria) Will continue to monitor clinically
--- NOTE | 2016-12-27 13:50 | CON ---
DATE: 12/27/2016 This is an 81-year-old man who has a thrombocytopenia. The patient says that he was feeling quite we ll and was able to go on a cruise until about 3 days ago when he suddenly started feeling very weak a nd he slipped, fell, did not bang his head or anything, but he became very weak. He did not really n otice any chills, but he did have an episode of diarrhea and was treated for 3 days on the boat until he was able to dock in [place] and come to the hospital. Here, he was found to have markedly elevat ed liver function tests with a platelet count of about 85,000 and a fever of about 101.5. PHYSICAL EXAMINATION: SKIN: No petechiae, no bruises. HEENT: Anicteric, although he may have a fever blister on his left side of his lips. NODES: None palpable in the axillary, cervical, supraclavicular or inguinal regions. LUNGS: Clear at present. No vertebral tenderness. The patient is able to lie flat in bed. HEART: S1, S2. ABDOMEN: Shows no liver, no spleen, no tenderness, no ascites, no rebound. EXTREMITIES: No edema. NEUROLOGIC: No focal finding. The platelet count went up from 85,000 to 100; however, the platelet count manual today was under 25, 000. His liver function tests are about 200, went up to about 400, SGOT, SGPT. Peripheral smear lauren ws normochromic normocytic with no increased low polys, no polychromasia. No schistocytes, helmet ce lls fragmented cells and no polychromasia. B12 was normal. They did an abdominal sonogram which carrillo s not show lesions in the liver. Furthermore, his PT, PTT is normal with a fibrinogen of 750 which g oes along with an acute phase reactant and against DIC, against TTP against ITP. So at this point, I think this is a reactive thrombocytopenia, possibly due to the viral infection th at is causing the elevated liver function tests. This seems to be improving and he says he is feelin g better, but I do not see any evidence of ITP TTP, DIC or clumping of platelets and I believe this i s reactive to the present infection. So at this point, I would advise just following the platelets, but no intervention at this time. Shan Ayaka LARA cc: [id number] TT: 12/27/2016 13:48:59 Confirmation # [id number] Dictation # [id number] tn
[2016-12-27] MEDS: Linezolid 600 mg in D5W 300 ml 600 MG/300 ML BAG IVPB SCH (14:49)
[2016-12-27] MEDS: MethylPREDNISolone 40 mg Vial IVP SCH (18:47)
[2016-12-28] MEDS: Albuterol-Ipratrop 3 mg / 0.5 (3 ml) UD IH SCH ×4 (01:04→19:50)
[2016-12-28] MEDS: Piperacillin/Tazobact 3.375 gm 100 ML IVPB SCH ×4 (05:16→22:59)
[2016-12-28] MEDS: Pantoprazole 40 mg EC Tab PO SCH (06:16)
[2016-12-28] MEDS: MethylPREDNISolone 40 mg Vial IVP SCH ×2 (06:16→18:12)
[2016-12-28 06:48] LABS: HEMATOCRIT 36.6 % (42.0-52.0); MEAN CELL VOLUME 86.3 fL (80.0-105.0); MEAN CORPUSCULAR HEMOGLOBIN 31.1 pg (25.0-35.0); MEAN CORPUSCULAR HGB CONC 36.1 g/dl (31.0-37.0); MEAN PLATELET VOLUME 9.5 fl (7.0-11.0); RED CELL DISTRIBUTION WIDTH 13.9 % (11.5-14.5); WHITE BLOOD COUNT 7.4 10^3/ul (4.5-11.0)
[2016-12-28 07:06] LABS: ALB/GLOB RATIO 0.9 (1.1-1.8); ALKALINE PHOSPHATASE 269 U/L (38-133); ALT/SGPT 310 U/L (7-56); AST/SGOT 200 U/L (15-59); BILIRUBIN,TOTAL 1.6 mg/dL (0.2-1.3); BLOOD UREA NITROGEN 17 mg/dL (7-21); CALCIUM 8.6 mg/dL (8.4-10.5); CARBON DIOXIDE 27 mmol/L (21-33); CHLORIDE 100 mmol/L (98-107); GFR AFRICAN-AMERICAN > 60; GLUCOSE,RANDOM 173 mg/dL (70-110); POTASSIUM 3.9 mmol/L (3.6-5.0); SODIUM 135 mmol/L (132-148); TOTAL PROTEIN 6.2 g/dL (5.8-8.3)
[2016-12-28] MEDS: Budesonide 0.5 mg/2 ml Inhal Susp UD IH SCH ×2 (07:45→19:50)
--- NOTE | 2016-12-28 07:57 | CARD ---
APPROVED REPORT EKG Measurement Heart [id number] <Conclusion> Sinus rhythm with premature atrial complexes Right bundle branch block Abnormal ECG
--- NOTE | 2016-12-28 07:57 | CARD ---
APPROVED REPORT EKG Measurement Heart [id number] <Conclusion> Sinus rhythm with premature atrial complexes Right bundle branch block Abnormal ECG
--- NOTE | 2016-12-28 08:18 | CON ---
DATE: 12/27/2016 REFERRING PHYSICIAN: Dr. Martins. REASON FOR CONSULTATION: Right upper lobe pneumonia, cough, shortness of breath. HISTORY OF PRESENT ILLNESS: This is an 81-year-old gentleman with a past medical history significant for sleep apnea syndrome, hypertension, hyperlipidemia, who is originally from [place] travelling [facility] to [place], just coming back from their trip to the boat from the cruise according to the h istory. While in the cruise, the patient had symptom of a day or 2 with rhinitis, mild cough. Next thing he knew, he had a fever. He was treated with antibiotics in the cruise and brought into [facility] Emergency Room where he was found to have extensive right upper lobe pneumonia. Inf ectious diseases, pulmonary consult have been called. I was asked to do second opinion for pulmonary , but I also received a call from Dr. Marck Ayon, requested to take over the case. He will not fo llow the patient from now on. He gave me turnover about the patient, gave me the history. I spoke t o the and at bedside in length about their travel exposure. Presently, he does feel a l ittle better, still having cough, shortness of breath, clear sputum production. No hemoptysis, no he matemesis, no hematuria, no diarrhea reported. PAST MEDICAL HISTORY: Sleep apnea syndrome, hypertension, hyperlipidemia. SOCIAL HISTORY: He stopped smoking many years ago. Denied any alcohol use. FAMILY HISTORY: Positive for hypertension. ALLERGIES: None known. MEDICATIONS: At present, he is on albuterol-Atrovent nebulizer q. 2 hours p.r.n. and q. 6 hours arou nd the clock, Ecotrin 81 mg daily, Levaquin 500 mg daily, hydrochlorothiazide 12.5 mg daily, Pulmicor t inhaled twice a day, IV fluid normal saline 100 mL per hour, Toprol-XL 25 mg daily, Valtrex 500 mg twice a day, Zestril 20 mg daily, Zosyn 3.375 g IV q. 6 hours, Zyvox 600 mg twice a day. REVIEW OF SYSTEMS: No headache. At present, there is no rhinitis. Has a cough, shortness of breath . No chest pain. No nausea, no vomiting, and no diarrhea. No leg pain or leg swelling. Has a sore on the left lip. PHYSICAL EXAMINATION: GENERAL: Lying in the bed, mild distress. VITAL SIGNS: Temp is 99, T-max yesterday was 101.7, heart rate 72, respiratory rate is 20, blood pre ssure 160/85, pulse ox 95% on nasal cannula. HEENT: Moist mucous membranes. Crowded airway. Mallampati score is 4. NECK: Supple. No JVD. LUNGS: Whole right lung has expiratory wheezing. HEART: S1 and S2. ABDOMEN: Soft, nontender. No organomegaly. EXTREMITIES: There is no edema. NEUROLOGIC: Awake, alert, follows simple commands. LABORATORY DATA: Shows hemoglobin 13.0, hematocrit 36.3, WBC 6.5, platelet is 100. His INR 1.07. B lood gases done 2 days ago show pH 7.50, pCO2 29, pO2 89. That is on nasal cannula. Sodium 132, pot assium 3.8, chloride 99, bicarbonate 29, BUN 22, creatinine 0.9, glucose is 123, calcium is 8.4. Tot al bili 2.3. His AST 478. AST 412, alk phos is 282. LDH is 1165, creatine kinase 1533, albumin is 3.0. Vitamin B12 639. Urinalysis shows some blood, WBC 2-5, ____ less than 10. Hepatitis A, B, C n egative. Legionella antigen is negative. Blood cultures have been negative. Urine culture not much growth. Sputum culture is pending. CAT scan of the chest reviewed, seems very dense consolidation of the right upper lobe with air bronchogram. IMPRESSION AND PLAN: Pneumonia, obstructive sleep apnea syndrome, hypertension. Elevated liver enzy mes. Case discussed with at bedside. All the questions answered. Spoke to nursing staff. Marco e also discussed with Dr. Marck Ayon in detail. My clinical input is the patient probably had a v iral syndrome and of ____ pneumonia, may take a few days to clear on top of which he has a history of smoking. There may be a component of obstructive lung disease. Of course, this x-ray needs to be f ollowed up until clearing of infiltrate. I will continue nebulizer treatment, add Mucomyst to the re gimen, give Solu-Medrol 20 mg twice a day. Follow up LFTs in the morning. Gastric prophylaxis. Kaleigh p venous thrombosis prophylaxis. Continue BiPAP while sleeping. Keep head at 45 degrees. If patien t clinically does better by tomorrow, we will start physical therapy, get him out of bed to chair, natalie emanuel hopefully in 2 days or so, but will need followup at [place] for further x-rays , PFT. Thank you and we will follow with you. Miller Gardner MD cc: [id number] TT: 12/28/2016 08:18:30 Confirmation # [id number] Dictation # [id number] tn
--- NOTE | 2016-12-28 08:28 | PN ---
DATE: 12/28/2016 I saw him this morning. He is able to go the bathroom, walk to the bathroom by himself, also walked to the chair. He is out of bed to chair. He is eating well. He is in good spirits. He is breathin g better. He is coughing and bringing up more phlegm. MEDICATIONS: He is on acetylcysteine, DuoNeb, Ecotrin, Levaquin, Microzide, Protonix, Pulmicort, Beatrice u-Medrol down to 20, Toprol, Valtrex, Zestril, Zosyn and Zyvox. PHYSICAL EXAMINATION: VITAL SIGNS: 99.6 temp, 72 pulse, 127/61 blood pressure, 20 respiratory rate, 95% O2 sat on room air . HEAD: Atraumatic, normocephalic. Throat is moist. NECK: Supple. HEART: Regular rate. LUNGS: Decreased breath sounds bilaterally but clear. No rales, rhonchi or wheezes. ABDOMEN: Soft. EXTREMITIES: No edema. LABORATORY DATA: He has a 7.4 white count, 13.2 hemoglobin, 36.6 hematocrit with 124 platelets; that is good. He has a 135 sodium, potassium 3.9, BUN is 17 (better), creatinine 0.8, GFR is greater adalberto n 60, sugar is 173 on steroids, calcium is 8.6. Total bili is down to 1.6 which is great, AST is elizabeth n to 200, ALT is down to 310, alk phos is down to 269 - all improving. His total protein is 6.2. PLAN: For him is to discharge on to home. Will change him to tablets tomorrow. I already discussed with the family that in a week he has to get a CAT scan of the chest with his doctor in [facility]. Will check his labs tomorrow. IV fluids. He is going to eat. We will discharge him back to [place] tomorrow. He was here for right upper lobe pneumonia, elevated liver functions that are coming down nicely, angelito telets are improving, and overall he is improving. He also had low sodium. Gabe Martins DO cc: [id number] TT: 12/28/2016 08:27:59 Confirmation # [id number] Dictation # [id number] mn
[2016-12-28] MEDS: Metoprolol Succinate 25 mg XL Tab PO SCH (10:05)
[2016-12-28] MEDS: Linezolid 600 mg in D5W 300 ml 600 MG/300 ML BAG IVPB SCH ×2 (10:05→21:19)
[2016-12-28] MEDS: levoFLOXacin 500 MG TAB PO SCH (10:06)
[2016-12-28] MEDS: Acetylcysteine 20% Inhal Soln (4ml) PO SCH ×2 (10:10→18:10)
--- NOTE | 2016-12-28 11:02 | CP.PCM.PN ---
<ArpitanevashastaKendell - Last Filed: 12/28/16 11:22> Subjective - Date & Time of Evaluation Date of Evaluation: 12/28/16 Time of Evaluation: 11:01 - Subjective Subjective: PGY4 GI Fellow Progress Note Patient seen and examined bedside this morning. The patient states he is feeling better overall. Does admit to mild chest congestion and porductive cough , improved with respiratory therapies. Denies any fever, chills. 12 system ROS performed and negative except where stated. Objective - Vital Signs/Intake and Output Vital Signs (last 24 hours): Temp Pulse Resp BP Pulse Ox 97.8 F 60 20 146/77 94 L 12/28/16 07:52 12/28/16 10:06 12/28/16 07:52 12/28/16 10:06 12/28/16 07:52 Intake and Output: 12/28/16 12/28/16 06:59 18:59 Intake Total 600 Balance 600 - Medications Medications: Current Medications Acetylcysteine (Acetylcysteine 20%) 3 ml PO BID COUNTS INCLUDE 234 BEDS AT [facility] Albuterol/Ipratropium (Duoneb 3 Mg/0.5 Mg (3 Ml) Ud) 3 ml IH [id number] COUNTS INCLUDE 234 BEDS AT [facility] Last Admin: 12/28/16 07:45 Dose: 3 ml Albuterol/Ipratropium (Duoneb 3 Mg/0.5 Mg (3 Ml) Ud) 3 ml IH Q2H PRN PRN Reason: Shortness of Breath Last Admin: 12/28/16 00:06 Dose: 3 ml Aspirin (Ecotrin) 81 mg PO DAILY [facility]S [facility]CLUDE 234 BEDS AT [facility] Last Admin: 12/28/16 10:07 Dose: 81 mg Budesonide (Pulmicort Respules) 0.5 mg IH [id number] COUNTS INCLUDE 234 BEDS AT [facility] Last Admin: 12/28/16 07:45 Dose: 0.5 mg Hydrochlorothiazide (Microzide) 12.5 mg PO DAILY [facility]S [facility]CLUDE 234 BEDS AT [facility] Last Admin: 12/28/16 10:07 Dose: 12.5 mg Piperacillin Sod/Tazobactam Sod (Zosyn 3.375 In Ns 100ml) 100 mls @ 200 mls/hr IVPB Q6 [facility]ÓNICA PRN Reason: Protocol Stop: 01/08/17 13:04 Last Admin: 12/28/16 05:16 Dose: 200 mls/hr Linezolid (Zyvox 600mg/300ml D5w) 600 mg in 300 mls @ 200 mls/hr IVPB Q12 COUNTS [facility]CLUDE 234 BEDS AT [facility] PRN Reason: Protocol Stop: 01/03/17 13:31 Last Admin: 12/28/16 10:05 Dose: 200 mls/hr Levofloxacin (Levaquin) 500 mg PO DAILY [facility]CLUDE 234 BEDS [facility] Stop: 01/01/17 10:01 Last Admin: 12/28/16 10:06 Dose: 500 mg Lisinopril (Zestril) 20 mg PO DAILY [facility]S [facility]CLUDE 234 BEDS [facility] Last Admin: 12/28/16 10:06 Dose: 20 mg Methylprednisolone (Solu-Medrol) 20 mg IVP Q12H COUNTS INCLUDE 234 BEDS AT [facility] Last Admin: 12/28/16 06:16 Dose: 20 mg Metoprolol Succinate (Toprol Xl) 25 mg PO BRK COUNTS INCLUDE 234 BEDS AT [facility] Last Admin: 12/28/16 10:05 Dose: 25 mg Pantoprazole Sodium (Protonix Ec Tab) 40 mg PO 0630 COUNTS INCLUDE 234 BEDS AT [facility] Last Admin: 12/28/16 06:16 Dose: 40 mg Valacyclovir HCl (Valtrex) 500 mg PO BID COUNTS [facility]CLUDE 234 BEDS AT [facility] PRN Reason: Protocol Last Admin: 12/28/16 10:06 Dose: 500 mg - Labs Labs: 12/28/16 06:20 12/28/16 06:20 PT 11.6 Seconds (9.9-11.8) 12/27/16 10:58 INR 1.07 (0.93-1.08) 12/27/16 10:58 - Constitutional Appears: Non-toxic, No Acute Distress - Eye Exam Eye Exam: EOMI, PERRL - ENT Exam ENT Exam: Mucous Membranes Moist - Respiratory Exam Respiratory Exam: Rales, Rhonchi. absent: Clear to Ausculation Bilateral, Wheezes - Cardiovascular Exam Cardiovascular Exam: RRR, +S1, +S2 - GI/Abdominal Exam GI & Abdominal Exam: Soft, Normal Bowel Sounds. absent: Distended, Firm, Guarding, Rigid, Tenderness, Organomegaly - Extremities Exam Extremities Exam: Normal Inspection. absent: Pedal Edema - Neurological Exam Neurological Exam: Alert, Awake, Oriented x3 - Psychiatric Exam Psychiatric exam: Normal Affect, Normal Mood - Skin Skin Exam: Dry, Warm Assessment and Plan - Assessment and Plan (Free Text) Assessment: Patient is an 81yo male with PMHx significant for HTN, HLD, EITAN and B/L hearing impairment who presented to the ED with generalized malaise, fever and cough. -RUL community acquired pneumonia -Elevated LFTs, improved -Elevated CK in setting of recent fall -Hepatic steatosis -EITAN Plan: -LFTs downtrending, will need repeat check following D/C with his PCP -Awaiting MRCP -Check Echocardiogram - r/o right heart strain/Pulm HTN given h/o EITAN/smoking -Check Leptospira urine stain/cx given recent travel -Check HSV/CMV tomorrow AM -Autoimmune work up pending: MARILEE, AMA, SMA, LKM-Ab -Viral hepatitis serologies negative -Continue to monitor LFTs while inpatient <Gareth Capps MD - Last Filed: 12/28/16 11:35> Objective - Vital Signs/Intake and Output Vital Signs (last 24 hours): Temp Pulse Resp BP Pulse Ox 97.8 F 60 20 146/77 94 L 12/28/16 07:52 12/28/16 10:06 12/28/16 07:52 12/28/16 10:06 12/28/16 07:52 Intake and Output: 12/28/16 12/28/16 06:59 18:59 Intake Total 600 Balance 600 - Medications Medications: Current Medications Acetylcysteine (Acetylcysteine 20%) 3 ml PO BID [facility] Albuterol/Ipratropium (Duoneb 3 Mg/0.5 Mg (3 Ml) Ud) 3 ml IH [id number] COUNTS INCLUDE 234 BEDS AT [facility] Last Admin: 12/28/16 07:45 Dose: 3 ml Albuterol/Ipratropium (Duoneb 3 Mg/0.5 Mg (3 Ml) Ud) 3 ml IH Q2H PRN PRN Reason: Shortness of Breath Last Admin: 12/28/16 00:06 Dose: 3 ml Aspirin (Ecotrin) 81 mg PO DAILY COUNTS INCLUDE 234 BEDS AT [facility] Last Admin: 12/28/16 10:07 Dose: 81 mg Budesonide (Pulmicort Respules) 0.5 mg IH [id number] COUNTS INCLUDE 234 BEDS AT [facility] Last Admin: 12/28/16 07:45 Dose: 0.5 mg Hydrochlorothiazide (Microzide) 12.5 mg PO DAILY COUNTS INCLUDE 234 BEDS AT [facility] Last Admin: 12/28/16 10:07 Dose: 12.5 mg Piperacillin Sod/Tazobactam Sod (Zosyn 3.375 In Ns 100ml) 100 mls @ 200 mls/hr IVPB Q6 VERÓNICA PRN Reason: Protocol Stop: 01/08/17 13:04 Last Admin: 12/28/16 05:16 Dose: 200 mls/hr Linezolid (Zyvox 600mg/300ml D5w) 600 mg in 300 mls @ 200 mls/hr IVPB Q12 [facility]ÓNICA PRN Reason: Protocol Stop: 01/03/17 13:31 Last Admin: 12/28/16 10:05 Dose: 200 mls/hr Levofloxacin (Levaquin) 500 mg PO DAILY [facility] Stop: 01/01/17 10:01 Last Admin: 12/28/16 10:06 Dose: 500 mg Lisinopril (Zestril) 20 mg PO DAILY COUNTS INCLUDE 234 BEDS AT [facility] Last Admin: 12/28/16 10:06 Dose: 20 mg Methylprednisolone (Solu-Medrol) 20 mg IVP Q12H COUNTS INCLUDE 234 BEDS AT [facility] Last Admin: 12/28/16 06:16 Dose: 20 mg Metoprolol Succinate (Toprol Xl) 25 mg PO BRK COUNTS INCLUDE 234 BEDS AT [facility] Last Admin: 12/28/16 10:05 Dose: 25 mg Pantoprazole Sodium (Protonix Ec Tab) 40 mg PO 0630 COUNTS INCLUDE 234 BEDS AT [facility] Last Admin: 12/28/16 06:16 Dose: 40 mg Valacyclovir HCl (Valtrex) 500 mg PO BID COUNTS INCLUDE 234 BEDS AT [facility] PRN Reason: Protocol Last Admin: 12/28/16 10:06 Dose: 500 mg - Labs Labs: 12/28/16 06:20 12/28/16 06:20 PT 11.6 Seconds (9.9-11.8) 12/27/16 10:58 INR 1.07 (0.93-1.08) 12/27/16 10:58 Attending/Attestation - Attestation I have personally seen and examined this patient.: Yes I have fully participated in the care of the patient.: Yes I have reviewed all pertinent clinical information, including history, physical exam and plan: Yes Notes (Text): 12/28/16 11:30 Patient seen and examined at bedside with GI fellow. at bedside. This is a 81 year old male admitted with pneumonia, also with elevated LFTs. Has PMH of HTN and sleep apnea on CPAP. Abnormal LFT may be multifactorial. AST/ALT ratio 2 :1. May be underplaying alcohol intake. States was heavy drinker during [place] era but now once or twice a week. Dont have ECHO to measure right sided pressures in setting of sleep apnea. Will also send leptospirosus antigen due to recent cruise ship exposure. Will get MRCP to assess bile ducts. Will send IgG, LKM to complete autoimmune serologies. Diet as tolerated. Avoid hepatotoxic medications and daily trend of LFT. Viral serologies negative.
--- NOTE | 2016-12-28 15:55 | PN ---
DATE: 12/28/2016 REFERRING PHYSICIAN: Dr. Martins. SUBJECTIVE: He is out of bed to chair. Night was unremarkable. Slept well. Able to walk around [facility] with help. Cough is better. No nausea, no vomiting, no diarrhea. No leg pain or leg swelling. OBJECTIVE: GENERAL: No acute distress. VITAL SIGNS: Temp is 98, heart rate is 60, respiratory rate is 20, blood pressure 146/77, pulse ox 9 4% on room air. HEENT: Moist mucous membrane. Crowded airway. Mallampati score is 4. NECK: Supple. No JVD. LUNGS: Have better airflow with a few rhonchi. Wheezing is much improved. HEART: S1 and S2. ABDOMEN: Soft, nontender. No organomegaly. EXTREMITIES: There is no edema. NEUROLOGIC: Awake, alert, follows simple commands. MEDICATIONS: He is on Mucomyst 20% inhaled twice a day, DuoNeb q. 6 hours, Ecotrin 81 mg daily, Leva heather 500 mg daily, hydrochlorothiazide 12.5 mg daily, Protonix 40 mg daily, Pulmicort inhaled twice a day, Solu-Medrol 20 mg q. 12 hours, Toprol-XL 25 mg daily, Valtrex 5 mg twice a day, Zestril 20 mg d aily, Zosyn 3.375 g IV q. 6 hours, Zyvox 600 mg twice a day. LABORATORY DATA: Shows hemoglobin 13.2, hematocrit 36.6, WBC 7.4, platelet is 124. Sodium 134, pota ssium 3.9, chloride 100, bicarbonate 27, BUN 17, creatinine 0.7, glucose is 173, calcium 8.6. Total bili 1.6, AST 200, ALT 310, alk phos is 269, albumin is 3.0. IMPRESSION AND PLAN: Pneumonia, hypertension, sleep apnea syndrome, elevated liver enzymes. Pulmona ry point of view, he is doing much better. There may be a component of reactive airways, ex-smoker. Pulmonary point of view, he is doing well. Noted they are getting a cardiac workup as well as GI wo rkup because of elevated liver enzymes. Once patient is cleared by ID and GI, he could be placed on p.o. antibiotics. Started work on discharge planning in the next day or so. Hopefully liver enzymes will keep going down. Continue inhaled bronchodilator. Gastric prophylaxis. DVT prophylaxis. Thank you, and will follow with you. Miller Gardner MD cc: [id number] TT: 12/28/2016 15:55:25 Confirmation # [id number] Dictation # [id number] mn
--- NOTE | 2016-12-28 17:44 | CP.PCM.PN ---
Subjective - Date & Time of Evaluation Date of Evaluation: 12/28/16 Time of Evaluation: 10:05 - Subjective Subjective: Breathing much better, able to walk around the floor without dyspnea, no fevers overnight, no nausea, less cough. Objective - Vital Signs/Intake and Output Vital Signs (last 24 hours): Temp Pulse Resp BP Pulse Ox 97.8 F 59 L 20 146/77 94 L 12/28/16 07:52 12/28/16 07:52 12/28/16 07:52 12/28/16 07:52 12/28/16 07:52 Intake and Output: 12/28/16 12/28/16 06:59 18:59 Intake Total 600 Balance 600 - Medications Medications: Current Medications Acetylcysteine (Acetylcysteine 20%) 3 ml PO BID [facility] Albuterol/Ipratropium (Duoneb 3 Mg/0.5 Mg (3 Ml) Ud) 3 ml IH [id number] [facility] Last Admin: 12/28/16 07:45 Dose: 3 ml Albuterol/Ipratropium (Duoneb 3 Mg/0.5 Mg (3 Ml) Ud) 3 ml IH Q2H PRN PRN Reason: Shortness of Breath Last Admin: 12/28/16 00:06 Dose: 3 ml Aspirin (Ecotrin) 81 mg PO DAILY [facility] Last Admin: 12/27/16 10:03 Dose: 81 mg Budesonide (Pulmicort Respules) 0.5 mg IH [id number] [facility] Last Admin: 12/28/16 07:45 Dose: 0.5 mg Hydrochlorothiazide (Microzide) 12.5 mg PO DAILY [facility] Last Admin: 12/27/16 10:02 Dose: 12.5 mg Piperacillin Sod/Tazobactam Sod (Zosyn 3.375 In Ns 100ml) 100 mls @ 200 mls/hr IVPB Q6 [facility] PRN Reason: Protocol Stop: 01/08/17 13:04 Last Admin: 12/28/16 05:16 Dose: 200 mls/hr Linezolid (Zyvox 600mg/300ml D5w) 600 mg in 300 mls @ 200 mls/hr IVPB Q12 [facility] PRN Reason: Protocol Stop: 01/03/17 13:31 Last Admin: 12/27/16 14:49 Dose: 200 mls/hr Levofloxacin (Levaquin) 500 mg PO DAILY [facility] Stop: 01/01/17 10:01 Last Admin: 12/27/16 10:03 Dose: 500 mg Lisinopril (Zestril) 20 mg PO DAILY [facility] Last Admin: 12/27/16 10:02 Dose: 20 mg Methylprednisolone (Solu-Medrol) 20 mg IVP Q12H [facility] Last Admin: 12/28/16 06:16 Dose: 20 mg Metoprolol Succinate (Toprol Xl) 25 mg PO BRK [facility] Last Admin: 12/27/16 09:56 Dose: 25 mg Pantoprazole Sodium (Protonix Ec Tab) 40 mg PO 0630 [facility] Last Admin: 12/28/16 06:16 Dose: 40 mg Valacyclovir HCl (Valtrex) 500 mg PO BID [facility] PRN Reason: Protocol Last Admin: 12/27/16 18:36 Dose: 500 mg - Labs Labs: 12/28/16 06:20 12/28/16 06:20 PT 11.6 Seconds (9.9-11.8) 12/27/16 10:58 INR 1.07 (0.93-1.08) 12/27/16 10:58 - Constitutional Appears: Non-toxic, No Acute Distress - Head Exam Head Exam: NORMAL INSPECTION - ENT Exam ENT Exam: Mucous Membranes Moist - Neck Exam Neck Exam: absent: Lymphadenopathy, Meningismus - Respiratory Exam Respiratory Exam: Decreased Breath Sounds - Cardiovascular Exam Cardiovascular Exam: +S1, +S2 - GI/Abdominal Exam GI & Abdominal Exam: Soft. absent: Tenderness Assessment and Plan - Assessment and Plan (Free Text) Plan: Assessment Sepsis due to right upper lobe community-acquired pneumonia, clinically improving obstructive sleep apnea on CPAP at home HTN S/P left hip and knee surgery Plan Continue Zosyn and Levaquin and Zyvox (day 4); awaiting sputum cx; if by tomorrow the patient continues to be afebrile, the patient can be switched to PO Zyvox and Levaquin to complete the 7-10 day course Will continue to monitor clinically
--- NOTE | 2016-12-28 19:54 | CARD ---
APPROVED REPORT EXAM: Two-dimensional and M-mode echocardiogram with Doppler and color Doppler. INDICATION CHECK RIGHT SIDE OF HEART 2D DIMENSIONS Left Atrium (2D)4.5 (1.6-4.0cm)IVSd1.1 (0.7-1.1cm) LVDd4.6 (3.9-5.9cm)PWd1.6 (0.7-1.1cm) LVDs3.4 (2.5-4.0cm)FS (%) 27.3 % LVEF (%)53.2 (>50%) M-Mode DIMENSIONS Aortic Root2.80 (2.2-3.7cm)Aortic Cusp Exc.1.60 (1.5-2.0cm) Aortic Valve AoV Peak Luvrhnhf226.0cm/Duc Peak GR.10mmHg Mitral Valve E/A ratio0.0 TDI E/Lateral E'0.0E/Medial E'0.0 Tricuspid Valve TR Peak [id number]/sRAP [id number] Peak Gr.31mmHg [id number] LEFT VENTRICLE The left ventricle is normal size. There is normal left ventricular wall thickness. The left ventricular function is normal. The left ventricular ejection fraction is within the normal range. There is normal LV segmental wall motion. Transmitral Doppler flow pattern is Grade I-abnormal relaxation pattern. RIGHT VENTRICLE The right ventricle is mildly dilated. There is normal right ventricular wall thickness. RV Systolic function is mildly reduced. ATRIA The left atrium is mildly dilated. The right atrium is moderately dilated. AORTIC VALVE The aortic valve is mildly sclerotic. No aortic regurgitation is present. MITRAL VALVE The mitral valve is normal in structure. Mitral regurgitation is trace. TRICUSPID VALVE There is mild tricuspid regurgitation. There is mild pulmonary hypertension. GREAT VESSELS The aortic root is normal in size. PERICARDIAL EFFUSION There is no pericardial effusion. <Conclusion> The right ventricle is mildly dilated. RV Systolic function is mildly reduced. The right atrium is moderately dilated. There is mild tricuspid regurgitation. There is mild pulmonary hypertension.
[2016-12-29] MEDS: Albuterol-Ipratrop 3 mg / 0.5 (3 ml) UD IH SCH ×2 (01:49→07:37)
[2016-12-29] MEDS: Piperacillin/Tazobact 3.375 gm 100 ML IVPB SCH ×2 (05:24→11:25)
[2016-12-29] MEDS: Pantoprazole 40 mg EC Tab PO SCH (05:59)
[2016-12-29] MEDS: MethylPREDNISolone 40 mg Vial IVP SCH (05:59)
[2016-12-29 06:53] LABS: HEMATOCRIT 42.3 % (42.0-52.0); MEAN CELL VOLUME 86.5 fL (80.0-105.0); MEAN CORPUSCULAR HEMOGLOBIN 31.1 pg (25.0-35.0); MEAN CORPUSCULAR HGB CONC 35.9 g/dl (31.0-37.0); MEAN PLATELET VOLUME 10.2 fl (7.0-11.0); RED CELL DISTRIBUTION WIDTH 13.9 % (11.5-14.5)
[2016-12-29 06:56] LABS: ALKALINE PHOSPHATASE 284 U/L (38-133); ALT/SGPT 321 U/L (7-56); AST/SGOT 169 U/L (15-59); BILIRUBIN,TOTAL 1.6 mg/dL (0.2-1.3); BLOOD UREA NITROGEN 19 mg/dL (7-21); CALCIUM 9.1 mg/dL (8.4-10.5); CARBON DIOXIDE 28 mmol/L (21-33); GFR AFRICAN-AMERICAN > 60; GLUCOSE,RANDOM 209 mg/dL (70-110); POTASSIUM 3.9 mmol/L (3.6-5.0); SODIUM 135 mmol/L (132-148); TOTAL PROTEIN 7.4 g/dL (5.8-8.3)
[2016-12-29 07:09] LABS: CHLORIDE 97 mmol/L (95-110)
[2016-12-29 07:34] VITALS: RESP 20; TEMP 98.6; O2SAT 97
[2016-12-29] MEDS: Budesonide 0.5 mg/2 ml Inhal Susp UD IH SCH (07:37)
[2016-12-29] MEDS: Metoprolol Succinate 25 mg XL Tab PO SCH (08:51)
--- NOTE | 2016-12-29 08:52 | DS ---
Each day, he is getting better and better. He is sitting out of bed to chair. He is walking well. He is eating well. He is taking his medications well. He was there with his . He is from the [place]. He had right upper lobe pneumonia and some elevated liver enzymes. PHYSICAL EXAMINATION: VITAL SIGNS: He had a 97.8 temp, 59-60 pulse, 146/77 blood pressure, 94-95% O2 sat on room air. HEENT: His head is atraumatic, normocephalic. He is alert and oriented. Throat is moist. NECK: Supple. HEART: Regular rate. LUNGS: Decreased breath sounds, but clear to auscultation bilaterally. No wheezes, no rhonchi, no r ales. ABDOMEN: Soft, nontender, positive bowel sounds. EXTREMITIES: Have no edema. He looks good. He is going to go home on Zestril 20 one daily, prednisone 30 for 2 days, 20 for 2 days, 10 for 2 day s, then stop. Microzide, Protonix, Pulmicort inhaler, metoprolol, Valtrex 500 twice a day for 5 more days for fever blister, albuterol inhaler, ipratropium inhaler, Ecotrin, Levaquin for 5 days and Zyv ox antibiotics for 5 days. When he is back in [place], he has got to get blood test, a CBC, LFTs an d chemistry and a CAT scan of the chest. He will follow up with a project development coordinator and a gastroenterolo gist and his primary care physician. They are already organizing the chart to be sent to their docto r. He had 11 white count, 15.2 hemoglobin, 42.3 hematocrit with 186 platelets. He had a 135 sodium, pot assium 3.9, BUN is 9, creatinine 0.8, GFR is greater than 60, sugar is 209 from the steroids, calcium is 9.1, total bili is 1.6, AST is better at 169, ALT is 321, alk phos is 284 and total protein 7.4. They understand the liver enzymes being elevated, the right upper lobe pneumonia needs to be rechecke d with a CAT scan. He was being seen by infectious disease, pulmonary, gastroenterology, hematology/ oncology for thrombocytopenia which improved. Hopefully, he will do very well in [place]. They und erstand the plan. He is going to see his doctor in 4-5 days. Gabe Martins DO cc: [phone] TT: 12/29/2016 08:52:14 tn
--- NOTE | 2016-12-29 08:54 | MRI ---
PROCEDURE: Magnetic Resonance Cholangiopancreatography HISTORY: COMPARISON: None available. TECHNIQUE: Multiplanar, multisequence MR images of the abdomen were obtained, including heavily T2 weighted MRCP images of the biliary system. Rotating maximum intensity projection images of the biliary system were generated. FINDINGS: MRCP: The common bile duct is of a normal caliber. No evidence of choledocholithiasis. No intrahepatic biliary ductal dilatation. LIVER: Unremarkable. GALLBLADDER: Unremarkable. SPLEEN: Unremarkable. PANCREAS: Unremarkable. ADRENALS: Unremarkable. KIDNEYS: Unremarkable. AORTA: No aneurysm. ASCITES: None. OTHER FINDINGS: Right pleural effusion. IMPRESSION: Right pleural effusion. No evidence of cholelithiasis or choledocholithiasis. Normal caliber CBD.
[2016-12-29] MEDS: levoFLOXacin 500 MG TAB PO SCH (09:36)
[2016-12-29] MEDS: Linezolid 600 mg in D5W 300 ml 600 MG/300 ML BAG IVPB SCH (09:37)
[2016-12-29 09:47] VITALS: BP 165/87; PULSE 65
--- NOTE | 2016-12-29 10:33 | CP.PCM.PN ---
Subjective - Date & Time of Evaluation Date of Evaluation: 12/29/16 Time of Evaluation: 09:35 - Subjective Subjective: Cough is starting to improve, no fevers overnight, no nausea or diarrhea, appetite better, has more energy, not dyspneic walking around the floor. Objective - Vital Signs/Intake and Output Vital Signs (last 24 hours): Temp Pulse Resp BP Pulse Ox 98.6 F 65 20 165/87 H 97 12/29/16 07:30 12/29/16 09:36 12/29/16 07:30 12/29/16 09:36 12/29/16 07:30 Intake and Output: 12/29/16 12/29/16 06:59 18:59 Intake Total 1080 Balance 1080 - Medications Medications: Current Medications Acetylcysteine (Acetylcysteine 20%) 3 ml PO BID [facility] Last Admin: 12/28/16 18:10 Dose: Not Given Albuterol/Ipratropium (Duoneb 3 Mg/0.5 Mg (3 Ml) Ud) 3 ml IH [id number] [facility] Last Admin: 12/29/16 07:37 Dose: 3 ml Albuterol/Ipratropium (Duoneb 3 Mg/0.5 Mg (3 Ml) Ud) 3 ml IH Q2H PRN PRN Reason: Shortness of Breath Last Admin: 12/28/16 00:06 Dose: 3 ml Aspirin (Ecotrin) 81 mg PO DAILY [facility] Last Admin: 12/29/16 09:37 Dose: 81 mg Budesonide (Pulmicort Respules) 0.5 mg IH [id number] [facility] Last Admin: 12/29/16 07:37 Dose: 0.5 mg Hydrochlorothiazide (Microzide) 12.5 mg PO DAILY [facility] Last Admin: 12/29/16 09:36 Dose: 12.5 mg Piperacillin Sod/Tazobactam Sod (Zosyn 3.375 In Ns 100ml) 100 mls @ 200 mls/hr IVPB Q6 [facility] PRN Reason: Protocol Stop: 01/08/17 13:04 Last Admin: 12/29/16 05:24 Dose: 200 mls/hr Linezolid (Zyvox 600mg/300ml D5w) 600 mg in 300 mls @ 200 mls/hr IVPB Q12 [facility] PRN Reason: Protocol Stop: 01/03/17 13:31 Last Admin: 12/29/16 09:37 Dose: 200 mls/hr Levofloxacin (Levaquin) 500 mg PO DAILY [facility] Stop: 01/01/17 10:01 Last Admin: 12/29/16 09:36 Dose: 500 mg Lisinopril (Zestril) 20 mg PO DAILY [facility] Last Admin: 12/29/16 09:36 Dose: 20 mg Methylprednisolone (Solu-Medrol) 20 mg IVP Q12H [facility] Last Admin: 12/29/16 05:59 Dose: 20 mg Metoprolol Succinate (Toprol Xl) 25 mg PO BRK [facility] Last Admin: 12/29/16 08:51 Dose: 25 mg Pantoprazole Sodium (Protonix Ec Tab) 40 mg PO 0630 [facility] Last Admin: 12/29/16 05:59 Dose: 40 mg Valacyclovir HCl (Valtrex) 500 mg PO BID [facility] PRN Reason: Protocol Last Admin: 12/29/16 09:36 Dose: 500 mg - Labs Labs: 12/29/16 06:15 12/29/16 06:15 PT 11.6 Seconds (9.9-11.8) 12/27/16 10:58 INR 1.07 (0.93-1.08) 12/27/16 10:58 - Constitutional Appears: Non-toxic, No Acute Distress - Head Exam Head Exam: NORMAL INSPECTION - ENT Exam ENT Exam: Mucous Membranes Moist - Neck Exam Neck Exam: absent: Lymphadenopathy, Meningismus - Respiratory Exam Additional comments: good air entry, with decreased crackles on the right side - Cardiovascular Exam Cardiovascular Exam: +S1, +S2 - GI/Abdominal Exam GI & Abdominal Exam: Soft. absent: Tenderness Assessment and Plan - Assessment and Plan (Free Text) Plan: Assessment Sepsis due to right upper lobe community-acquired pneumonia, clinically improving obstructive sleep apnea on CPAP at home HTN S/P left hip and knee surgery Plan on Zosyn and Levaquin and Zyvox (day 5); sputum cx show no growth as well as blood cx - discussed with Dr. Martins - patient can be switched to PO Zyvox and Levaquin to complete the 7-10 day course (ie. 3-5 more days) with outpatient follow up with his primary care physician
[2016-12-29] MEDS: Acetylcysteine 20% Inhal Soln (4ml) PO SCH (10:45)
--- NOTE | 2016-12-29 12:27 | CP.PCM.PN ---
<Kendell Ramirez - Last Filed: 12/29/16 12:24> Subjective - Date & Time of Evaluation Date of Evaluation: 12/29/16 Time of Evaluation: 07:30 - Subjective Subjective: PGY4 GI Fellow Progress Note Patient seen and examined bedside this morning. The patient denies any complaints today and is feeling much better overall. He denies any fever, chills overnight. Tolerating diet without issue. No abdominal pain. 12 system ROS performed and negative except where stated. Objective - Vital Signs/Intake and Output Vital Signs (last 24 hours): Temp Pulse Resp BP Pulse Ox 98.6 F 65 20 165/87 H 97 12/29/16 07:30 12/29/16 09:36 12/29/16 07:30 12/29/16 09:36 12/29/16 07:30 Intake and Output: 12/29/16 12/29/16 06:59 18:59 Intake Total 1080 Balance 1080 - Medications Medications: Current Medications Acetylcysteine (Acetylcysteine 20%) 3 ml PO BID [facility] Last Admin: 12/29/16 10:45 Dose: Not Given Albuterol/Ipratropium (Duoneb 3 Mg/0.5 Mg (3 Ml) Ud) 3 ml IH [id number] [facility] Last Admin: 12/29/16 07:37 Dose: 3 ml Albuterol/Ipratropium (Duoneb 3 Mg/0.5 Mg (3 Ml) Ud) 3 ml IH Q2H PRN PRN Reason: Shortness of Breath Last Admin: 12/28/16 00:06 Dose: 3 ml Aspirin (Ecotrin) 81 mg PO DAILY [facility] Last Admin: 12/29/16 09:37 Dose: 81 mg Budesonide (Pulmicort Respules) 0.5 mg IH [id number] [facility] Last Admin: 12/29/16 07:37 Dose: 0.5 mg Hydrochlorothiazide (Microzide) 12.5 mg PO DAILY [facility] Last Admin: 12/29/16 09:36 Dose: 12.5 mg Piperacillin Sod/Tazobactam Sod (Zosyn 3.375 In Ns 100ml) 100 mls @ 200 mls/hr IVPB Q6 [facility] PRN Reason: Protocol Stop: 01/08/17 13:04 Last Admin: 12/29/16 11:25 Dose: 200 mls/hr Linezolid (Zyvox 600mg/300ml D5w) 600 mg in 300 mls @ 200 mls/hr IVPB Q12 [facility] PRN Reason: Protocol Stop: 01/03/17 13:31 Last Admin: 12/29/16 09:37 Dose: 200 mls/hr Levofloxacin (Levaquin) 500 mg PO DAILY [facility] Stop: 01/01/17 10:01 Last Admin: 12/29/16 09:36 Dose: 500 mg Lisinopril (Zestril) 20 mg PO DAILY [facility] Last Admin: 12/29/16 09:36 Dose: 20 mg Methylprednisolone (Solu-Medrol) 20 mg IVP Q12H [facility] Last Admin: 12/29/16 05:59 Dose: 20 mg Metoprolol Succinate (Toprol Xl) 25 mg PO BRK [facility] Last Admin: 12/29/16 08:51 Dose: 25 mg Pantoprazole Sodium (Protonix Ec Tab) 40 mg PO 0630 [facility] Last Admin: 12/29/16 05:59 Dose: 40 mg Valacyclovir HCl (Valtrex) 500 mg PO BID [facility] PRN Reason: Protocol Last Admin: 12/29/16 09:36 Dose: 500 mg - Labs Labs: 12/29/16 06:15 12/29/16 06:15 PT 11.6 Seconds (9.9-11.8) 12/27/16 10:58 INR 1.07 (0.93-1.08) 12/27/16 10:58 - Constitutional Appears: Non-toxic, No Acute Distress - Eye Exam Eye Exam: EOMI, PERRL - ENT Exam ENT Exam: Mucous Membranes Moist - Respiratory Exam Respiratory Exam: Rales. absent: Clear to Ausculation Bilateral, Rhonchi, Wheezes - Cardiovascular Exam Cardiovascular Exam: RRR, +S1, +S2 - GI/Abdominal Exam GI & Abdominal Exam: Soft, Normal Bowel Sounds. absent: Distended, Firm, Guarding, Rigid, Tenderness, Organomegaly - Extremities Exam Extremities Exam: Normal Inspection. absent: Pedal Edema - Neurological Exam Neurological Exam: Alert, Awake, Oriented x3 - Psychiatric Exam Psychiatric exam: Normal Affect, Normal Mood - Skin Skin Exam: Dry, Warm Assessment and Plan - Assessment and Plan (Free Text) Assessment: Patient is an 81yo male with PMHx significant for HTN, HLD, EITAN and B/L hearing impairment who presented to the ED with generalized malaise, fever and cough. -RUL community acquired pneumonia -Elevated LFTs, improved -Elevated CK in setting of recent fall -Hepatic steatosis -EITAN Plan: -Echo unremarkable for significant right heart disease -MRCP unremarkable -LFTs stable; recommend repeat on follow up with his PCP next week -Check HSV/CMV pending -AMA, SMA negative -MARILEE, LKM-Ab pending -Viral hepatitis serologies negative -OK to D/C from GI standpoint with follow up once patient returns to [place] <Jeffry Ley - Last Filed: 12/29/16 13:06> Objective - Vital Signs/Intake and Output Vital Signs (last 24 hours): Temp Pulse Resp BP Pulse Ox 98.6 F 65 20 165/87 H 97 12/29/16 07:30 12/29/16 09:36 12/29/16 07:30 12/29/16 09:36 12/29/16 07:30 Intake and Output: 12/29/16 12/29/16 06:59 18:59 Intake Total 1080 Balance 1080 - Medications Medications: Current Medications Acetylcysteine (Acetylcysteine 20%) 3 ml PO BID [facility] Last Admin: 12/29/16 10:45 Dose: Not Given Albuterol/Ipratropium (Duoneb 3 Mg/0.5 Mg (3 Ml) Ud) 3 ml IH [id number] [facility] Last Admin: 12/29/16 07:37 Dose: 3 ml Albuterol/Ipratropium (Duoneb 3 Mg/0.5 Mg (3 Ml) Ud) 3 ml IH Q2H PRN PRN Reason: Shortness of Breath Last Admin: 12/28/16 00:06 Dose: 3 ml Aspirin (Ecotrin) 81 mg PO DAILY [facility] Last Admin: 12/29/16 09:37 Dose: 81 mg Budesonide (Pulmicort Respules) 0.5 mg IH [id number] [facility] Last Admin: 12/29/16 07:37 Dose: 0.5 mg Hydrochlorothiazide (Microzide) 12.5 mg PO DAILY [facility] Last Admin: 12/29/16 09:36 Dose: 12.5 mg Piperacillin Sod/Tazobactam Sod (Zosyn 3.375 In Ns 100ml) 100 mls @ 200 mls/hr IVPB Q6 [facility] PRN Reason: Protocol Stop: 01/08/17 13:04 Last Admin: 12/29/16 11:25 Dose: 200 mls/hr Linezolid (Zyvox 600mg/300ml D5w) 600 mg in 300 mls @ 200 mls/hr IVPB Q12 [facility] PRN Reason: Protocol Stop: 01/03/17 13:31 Last Admin: 12/29/16 09:37 Dose: 200 mls/hr Levofloxacin (Levaquin) 500 mg PO DAILY [facility] Stop: 01/01/17 10:01 Last Admin: 12/29/16 09:36 Dose: 500 mg Lisinopril (Zestril) 20 mg PO DAILY [facility] Last Admin: 12/29/16 09:36 Dose: 20 mg Methylprednisolone (Solu-Medrol) 20 mg IVP Q12H [facility] Last Admin: 12/29/16 05:59 Dose: 20 mg Metoprolol Succinate (Toprol Xl) 25 mg PO BRK [facility] Last Admin: 12/29/16 08:51 Dose: 25 mg Pantoprazole Sodium (Protonix Ec Tab) 40 mg PO 0630 [facility] Last Admin: 12/29/16 05:59 Dose: 40 mg Valacyclovir HCl (Valtrex) 500 mg PO BID [facility] PRN Reason: Protocol Last Admin: 12/29/16 09:36 Dose: 500 mg - Labs Labs: 12/29/16 06:15 12/29/16 06:15 PT 11.6 Seconds (9.9-11.8) 12/27/16 10:58 INR 1.07 (0.93-1.08) 12/27/16 10:58 Attending/Attestation - Attestation I have personally seen and examined this patient.: Yes I have fully participated in the care of the patient.: Yes I have reviewed all pertinent clinical information, including history, physical exam and plan: Yes Notes (Text): Patient seen and examined with GI fellow. Agree with his note as documented above with the following additions/exceptions. This is an 81yo male with PMHx significant for HTN, HLD, EITAN admitted with generalized malaise, fever and cough. He is found to have abnormal LFTs, elevated CK and right sided pneumonia. He feels overall improved today. Denies any current abdmoinal pain , nausea or vomiting. He is tolerating diet without incident. MRCP yesterday without any evidence of obstructive pathology, normal duct. His LFTs are stable. He should follow up with his PMD in [place] for f/u of LFTs. Discussed with Dr. Martins. 12/29/16 13:04
[2016-12-30 01:14] LABS: LKM-1 Ab (IgG) <=20.0 U (<=20.0)
[2016-12-30 18:21] LABS: CYTOMEGALOVIRUS AB (IGM) <30.00 AU/mL
--- NOTE | 2016-12-30 21:17 | PQF SEPSIS ---
12/30/16 Dr. Martins, Dr. Costa documents sepsis on his notes; Dr. Ayon documents "sepsis syndrome " on his notes. You do not document sepsis on any of your notes. Do you agree, disagree, undetermined, other with the diagnosis of systemic sepsis for this patient? If you agree, was sepsis present on admission? Thank you. Clarification of your documentation is requested to better reflect the severity of illness and intensity of treatment of your patient. Indicators present [] Temp < 96.8 or > 100.4 [] WBC count > 12,000/mm3 or <000/mm3 or 10% immature neutrophils [] Heart Rate > 90 [] Respiratory Rate > 20 [] Fever or hypothermia [] Chills [] Positive blood cultures [] Hypotension [] Metabolic acidosis (Elevated lactate level, anion gap or reduced blood pH) [] Acute confusion /Altered Mental Status [] Shock [] Other: [] Location in the medical record that reflects the above clinical findings: [] Treatment Provided: [] PHYSICIAN'S RESPONSE Based on your medical judgment of the clinical indicators outlined above, are you treating this patient for a known or suspected: [] Sepsis / Septicemia Please specify organism if known [] [] SIRS (Systemic Inflammatory Response Syndrome) [] Severe Sepsis (Sepsis with Associated Organ Dysfunction) [] Fever of Unknown Origin [] Other, please indicate: [] yes sepsis [] If Unable to Determine, please check the box, sign and date. Present On Admission (POA) Indicator: [] Present at the time of admission [] Not present at the time of admission [] Clinically Undetermined In responding to this query, please exercise your independent professional judgment. The fact that a question is asked does not imply that any particular answer is desired or expected. Thank you for your clarification on this documentation. If you have any questions please call:[ ] * Thank you, [ ] janitorial cleaner ORTIZ
== END 2016-12-29 13:59 | disposition home or self-care (01) | DRG 871 ==
LOC: ED 08:45 → ERH 10:05 → 5RNO 10:43 → ERH 10:59 → 5RNO 11:59
PROVIDERS: ADMIT Family Medicine; ATTEND Family Medicine
DX: A41.9 Sepsis, unspecified organism (principal); J18.9 Pneumonia, unspecified organism; J90 Pleural effusion, not elsewhere classified; D69.6 Thrombocytopenia, unspecified; K76.0 Fatty (change of) liver, not elsewhere classified; R16.0 Hepatomegaly, not elsewhere classified; N39.0 Urinary tract infection, site not specified; D64.9 Anemia, unspecified; I45.10 Unspecified right bundle-branch block; I49.8 Other specified cardiac arrhythmias; E78.5 Hyperlipidemia, unspecified; G47.33 Obstructive sleep apnea (adult) (pediatric); H91.93 Unspecified hearing loss, bilateral; I10 Essential (primary) hypertension; J20.9 Acute bronchitis, unspecified; Z82.49 Family history of ischemic heart disease and other diseases of the circulatory system; Z87.891 Personal history of nicotine dependence; Z96.652 Presence of left artificial knee joint; R40.2412 Glasgow coma scale score 13-15, at arrival to emergency department; B00.1 Herpesviral vesicular dermatitis; Z83.79 Family history of other diseases of the digestive system; Z84.0 Family history of diseases of the skin and subcutaneous tissue; Z91.81 History of falling